=== PATIENT | female | born 1945 | race Caucasian/White ===

== ENCOUNTER 2016-09-01 10:00 | Observation (INO) | payer MEDICARE, OTHER ==
[~2016-09-01] VITALS: Ht 154.9 cm; Wt 72.0 kg
[~2016-09-01 10:00] MED LIST: AUGM875T PO; AZIT250T43 PO; LEXA20TA PO; SYNT25TA PO; TRAZ100 PO
[2016-09-01 10:04] VITALS: BP 133/70; PULSE 78; RESP 20; TEMP 97.4; O2SAT 94
[2016-09-01] MEDS ORDERED: SODIUM CHLOR 0.9% 1000 ML INJ 1,000 ML IV SCH (11:08)
[2016-09-01] MEDS ORDERED: SODIUM CHLORIDE 0.9% FLUSH 10 ML FLUSH IV FLUSH PRN ×2 (11:15→16:45)
--- NOTE | 2016-09-01 11:26 | PD ---
HPI Chief Complaint: Complaint Time Seen by Provider: 11:02 Travel History International Travel<30 days: No Contact w/Intl Traveler<30days: No Traveled to known affect area: No History of Present Illness HPI Patient is a 71-year-old female with her "significant other" who presents to emergency room with multiple complaints. Patient reports that for the past week , she has had a strong foul-smelling urine, reports concerns for possible UTI. Patient denies dysuria or urinary urgency. Patient reports that she has had overall decreased fluid intake, reports that "I know that I don't drink enough water." Patient reports no fevers or chills, denies any nausea or vomiting. Patient also reporting that she has been having diarrhea, patient admits to maybe 1 or 2 episodes of diarrhea per day 1 week. Patient reports that she has not been on any antibiotics, denies any sick contacts, denies any recent travels, reports no abdominal pain at this time. Patient with no chest pain or no shortness of breath, patient with no other complaints. PFSH Past Medical History Arthritis: Yes Asthma: No Anxiety: Yes Depression: Yes Heart Rhythm Problems: No Cancer: Yes (RIGHT BREAST) Cardiac Catheterization: No Cardiovascular Problems: No High Cholesterol: No (DENIES) Chest Pain: No Congestive Heart Failure: No COPD: Yes Cerebrovascular Accident: No Diabetes: No Diminished Hearing: No Endocrine: Yes GERD: No Genitourinary: No Headaches: Yes Hiatal Hernia: No Immune Disorder: No Musculoskeletal: Yes Neurologic: No Psychiatric: Yes Reproductive: No Respiratory: No (quit smoking 5 years ago) Migraines: No Pneumonia: Yes Seizures: No Sleep Apnea: No Thyroid Disease: Yes (PER POA, PATIENT USED TO BE TREATED FOR THYROOID PROBLEM) Ulcer: No ?: Not Menopausal: Yes : 1 Para: 1 Past Surgical History Abdominal Surgery: No Appendectomy: Yes (?) Body Medical Devices: LEFT KNEE REP. Cardiac Surgery: No Cholecystectomy: Yes (?) Coronary Artery Bypass Graft: No Ear Surgery: No Endocrine Surgery: No Genitourinary Surgery: No Hysterectomy: Yes Neurologic Surgery: Yes (SUBDURAL HEMATOMA, BACK SURGERY February [place]) Oral Surgery: Yes (TEETH REMOVED FOR DENTURES) Thoracic Surgery: No Other Surgery: Yes (SPINAL STENOSIS; RIGHT MASTECTOMY) Social History Alcohol Use: Yes (RARE) Tobacco Use: No Substance Use: Yes (TWO PPUFFS OF A BLUNT TWO DAYS AGO) Allergies-Medications (Allergen,Severity, Reaction): Coded Allergies: Wellbutrin (Verified Allergy, Severe, 02/27/16) *MDRO Multi-Drug Resistant Organism (Verified Adverse Reaction, Unknown, 03/01/16) [facility] (urine) - 04/02/11 Reported Meds & Prescriptions Reported Meds & Active Scripts Active Reported Tramadol (Tramadol HCl) 50 Mg Tab 50 Mg PO BID PRN Donepezil 10 Mg Tab 10 Mg PO HS Escitalopram (Escitalopram Oxalate) 10 Mg Tab 10 Mg PO DAILY Celecoxib 200 Mg Cap 200 Mg PO DAILY Levothyroxine (Levothyroxine Sodium) 25 Mcg Tab 25 Mcg PO DAILY Review of Systems General / Constitutional: No: Fever Eyes: No: Visual changes HENT: No: Headaches Cardiovascular: No: Chest Pain or Discomfort Respiratory: No: Shortness of Breath Gastrointestinal: Positive: Diarrhea, No: Nausea, Vomiting, Abdominal Pain Genitourinary: Positive: Frequency, Other ("foul smelling urine"), No: Dysuria Musculoskeletal: No: Pain Skin: No Rash Neurologic: No: Weakness Psychiatric: No: Depression Endocrine: No: Polydipsia Hematologic/Lymphatic: No: Easy Bruising Physical Exam Narrative GENERAL: No acute distress, nontoxic SKIN: Focused skin assessment warm/dry. HEAD: Atraumatic. Normocephalic. EYES: Pupils equal and round. No scleral icterus. No injection or drainage. ENT: No nasal bleeding or discharge. Mucous membranes pink and moist. NECK: Trachea midline. No JVD. CARDIOVASCULAR: Regular rate and rhythm. No murmur appreciated. RESPIRATORY: No accessory muscle use. Scattered wheezing to lungs GASTROINTESTINAL: Abdomen soft, non-tender, nondistended. Hepatic and splenic margins not palpable. MUSCULOSKELETAL: No obvious deformities. No clubbing. No cyanosis. No edema. NEUROLOGICAL: Awake and alert. No obvious cranial nerve deficits. Motor grossly within normal limits. Normal speech. PSYCHIATRIC: Appropriate mood and affect; insight and judgment normal. Data Data Last Documented VS Vital Signs Date Time Temp Pulse Resp B/P Pulse Ox O2 Delivery O2 Flow Rate FiO2 09/01/16 10:04 97.4 78 20 133/70 94 Room Air Orders Complete Blood Count With Diff (09/01/16 11:08) Comprehensive Metabolic Panel (09/01/16 11:08) Urinalysis - C+S If Indicated (09/01/16 11:08) Iv Access Insert/Monitor (09/01/16 11:08) Sodium Chlor 0.9% 1000 Ml Inj (Ns 1000 M (09/01/16 11:08) Sodium Chloride 0.9% Flush (Ns Flush) (09/01/16 11:15) Urinary Catheter Insert/Apply (09/01/16 11:52) Urine Culture (09/01/16 12:00) Ceftriaxone Inj (Rocephin Inj) (09/01/16 13:15) Admit Order (Ed Use Only) (09/01/16 13:58) Labs Laboratory Tests Test 09/01/16 09/01/16 09/01/16 11:40 12:00 12:35 White Blood Count 7.2 TH/MM3 Red Blood Count 5.00 MIL/MM3 Hemoglobin 15.1 GM/DL Hematocrit 45.2 % Mean Corpuscular Volume 90.4 FL Mean Corpuscular Hemoglobin 30.3 PG Mean Corpuscular Hemoglobin 33.5 % Concent Red Cell Distribution Width 15.1 % Platelet Count 226 TH/MM3 Mean Platelet Volume 9.1 FL Neutrophils (%) (Auto) 67.6 % Lymphocytes (%) (Auto) 22.9 % Monocytes (%) (Auto) 7.3 % Eosinophils (%) (Auto) 1.7 % Basophils (%) (Auto) 0.5 % Neutrophils # (Auto) 4.9 TH/MM3 Lymphocytes # (Auto) 1.7 TH/MM3 Monocytes # (Auto) 0.5 TH/MM3 Eosinophils # (Auto) 0.1 TH/MM3 Basophils # (Auto) 0.0 TH/MM3 CBC Comment DIFF FINAL Differential Comment Urine Color YELLOW Urine Turbidity CLOUDY Urine pH 5.5 Urine Specific [place] 1.023 Urine Protein 30 mg/dL Urine Glucose (UA) NEG mg/dL Urine Ketones TRACE mg/dL Urine Occult Blood MOD Urine Nitrite NEG Urine Bilirubin NEGATIVE Urine Leukocyte Esterase SMALL Urine RBC 15 /hpf Urine WBC /hpf Urine Squamous Epithelial 89 /hpf Cells Urine Amorphous Sediment SMALL Urine Bacteria MANY /hpf Microscopic Urinalysis Comment CATH-CULTURE IND Sodium Level 146 MEQ/L Potassium Level 4.0 MEQ/L Chloride Level 111 MEQ/L Carbon Dioxide Level 30.3 MEQ/L Anion Gap 5 MEQ/L Blood Urea Nitrogen 16 MG/DL Creatinine 0.69 MG/DL Estimat Glomerular Filtration 84 ML/MIN Rate Random Glucose 99 MG/DL Calcium Level 8.1 MG/DL Total Bilirubin 0.3 MG/DL Aspartate Amino Transf 16 U/L (AST/SGOT) Alanine Aminotransferase 21 U/L (ALT/SGPT) Alkaline Phosphatase 62 U/L Total Protein 6.5 GM/DL Albumin 3.1 GM/DL MDM Medical Decision Making Medical Screen Exam Complete: Yes Emergency Medical Condition: Yes Interpretation(s) Vital Signs Date Time Temp Pulse Resp B/P Pulse Ox O2 Delivery O2 Flow Rate FiO2 09/01/16 10:04 97.4 78 20 133/70 94 Room Air Differential Diagnosis UTI, cystitis, pyelonephritis, gastroenteritis, C. difficile although unlikely, dehydration Narrative Course Patient is a 71-year-old female who presents to emergency room with complaints of a week of dark foul-smelling urine as well as diarrhea. Patient reports that symptoms have been sick for the past week, she has not been on antibiotics , denies any sick contacts. Patient reports that his significant other for forced her to come to the emergency room for evaluation. Reports that overall, "i feel fine, there is nothing wrong with me." Patient with benign exam, labs ordered to evaluate for infection and renal insufficiency. UA ordered to evaluate for UTI. Diarrhea could be related to viral syndrome - reports only a few episodes of diarrhea per day, patient with no abdominal pain at this time, patient has not been on antibiotics recently, I do not think the patient has C. difficile colitis, plan to monitor patient and give IVF Laboratory Tests Test 09/01/16 09/01/16 09/01/16 11:40 12:00 12:35 White Blood Count 7.2 TH/MM3 (4.0-11.0) Red Blood Count 5.00 MIL/MM3 (4.00-5.30) Hemoglobin 15.1 GM/DL (11.6-15.3) Hematocrit 45.2 % (35.0-46.0) Mean Corpuscular Volume 90.4 FL (80.0-100.0) Mean Corpuscular Hemoglobin 30.3 PG (27.0-34.0) Mean Corpuscular Hemoglobin 33.5 % Concent (32.0-36.0) Red Cell Distribution Width 15.1 % (11.6-17.2) Platelet Count 226 TH/MM3 (150-450) Mean Platelet Volume 9.1 FL (7.0-11.0) Neutrophils (%) (Auto) 67.6 % (16.0-70.0) Lymphocytes (%) (Auto) 22.9 % (9.0-44.0) Monocytes (%) (Auto) 7.3 % (0.0-8.0) Eosinophils (%) (Auto) 1.7 % (0.0-4.0) Basophils (%) (Auto) 0.5 % (0.0-2.0) Neutrophils # (Auto) 4.9 TH/MM3 (1.8-7.7) Lymphocytes # (Auto) 1.7 TH/MM3 (1.0-4.8) Monocytes # (Auto) 0.5 TH/MM3 (0-0.9) Eosinophils # (Auto) 0.1 TH/MM3 (0-0.4) Basophils # (Auto) 0.0 TH/MM3 (0-0.2) CBC Comment DIFF FINAL Differential Comment Urine Color YELLOW (YELLW/STRAW) Urine Turbidity CLOUDY (CLEAR) Urine pH 5.5 (5.0-8.5) Urine Specific [place] 1.023 (1.002-1.035) Urine Protein 30 mg/dL (NEG-TRACE) Urine Glucose (UA) NEG mg/dL (NEG) Urine Ketones TRACE mg/dL (NEG) Urine Occult Blood MOD (NEG) Urine Nitrite NEG (NEG) Urine Bilirubin NEGATIVE (NEG) Urine Leukocyte Esterase SMALL (NEG) Urine RBC 15 /hpf (0-3) Urine WBC /hpf (0-5) Urine Squamous Epithelial 89 /hpf (0-5) Cells Urine Amorphous Sediment SMALL Urine Bacteria MANY /hpf (NONE) Microscopic Urinalysis Comment CATH-CULTURE IND Sodium Level 146 MEQ/L (136-145) Potassium Level 4.0 MEQ/L (3.5-5.1) Chloride Level 111 MEQ/L (98-107) Carbon Dioxide Level 30.3 MEQ/L (21.0-32.0) Anion Gap 5 MEQ/L (5-15) Blood Urea Nitrogen 16 MG/DL (7-18) Creatinine 0.69 MG/DL (0.50-1.00) Estimat Glomerular Filtration 84 ML/MIN (>89) Rate Random Glucose 99 MG/DL (74-106) Calcium Level 8.1 MG/DL (8.5-10.1) Total Bilirubin 0.3 MG/DL (0.2-1.0) Aspartate Amino Transf 16 U/L (15-37) (AST/SGOT) Alanine Aminotransferase 21 U/L (10-53) (ALT/SGPT) Alkaline Phosphatase 62 U/L (45-117) Total Protein 6.5 GM/DL (6.4-8.2) Albumin 3.1 GM/DL (3.4-5.0) patient with uti, patient spouse reports that patient has hx of dementia but there is concerned for increased confusion over the past week, reports concern for her safety if she is discharged from home, request that patient be placed in NH as she is bed bound and wheelchair bound and he is unable to care for her anymore. I tried to encourage pt's "significant other" to take patient home with a script for antibiotics and plan to follow with UC - he feels unsafe taking patient home and feels as if he cannot care for her anymore. Physician Communication Physician Communication case reviewed with Dr. Maldonado who accepts pt to service Diagnosis Primary Impression: Delirium due to another medical condition Additional Impression: UTI (urinary tract infection) Admitting Information Admitting Physician Requests: Observation Cyndi Coleman DO Sep 01, 2016 11:26
[2016-09-01 12:08] LABS: AUTOMATED NEUTROPHIL # 4.9 TH/MM3 (1.8-7.7); BASOPHIL % 0.5 % (0.0-2.0); EOSINOPHIL # 0.1 TH/MM3 (0-0.4); EOSINOPHIL % 1.7 % (0.0-4.0); HEMATOCRIT 45.2 % (35.0-46.0); HEMO FLAGS DIFF FINAL; LYMPH % 22.9 % (9.0-44.0); LYMPHOCYTE # 1.7 TH/MM3 (1.0-4.8); MEAN CELL VOLUME 90.4 FL (80.0-100.0); MEAN CORPUSCULAR HEMOGLOBIN 30.3 PG (27.0-34.0); MEAN CORPUSCULAR HGB CONC 33.5 % (32.0-36.0); MONO % 7.3 % (0.0-8.0); NEUT % 67.6 % (16.0-70.0); PLATELET COUNT 226 TH/MM3 (150-450); RED CELL DISTRIBUTION WIDTH 15.1 % (11.6-17.2); WHITE BLOOD COUNT 7.2 TH/MM3 (4.0-11.0)
[2016-09-01] MEDS ORDERED: ESCI10TA PO (12:27)
[2016-09-01] MEDS ORDERED: CELE1CAP8 PO (12:27)
[2016-09-01] MEDS ORDERED: DONE10TA7 PO (12:27)
[2016-09-01] MEDS ORDERED: TRAM50TA PO (12:27)
[2016-09-01] MEDS ORDERED: LEVO25TA4 PO (12:27)
[2016-09-01 13:00] VITALS: BP 143/64; PULSE 72; RESP 18; O2SAT 95
[2016-09-01 13:08] LABS: BACTERIA, URINE MANY /hpf; SQUAMOUS EPITHELIAL CELL URINE 89 /hpf (0-5); URINE COLOR YELLOW (YELLW/STRAW)
[2016-09-01 13:09] LABS: BLOOD, URINE MOD (NEG); GLUCOSE,URINE NEG (NEG); KETONE, URINE TRACE mg/dL (NEG); NITRITE,URINE NEG (NEG); PH, URINE 5.5 (5.0-8.5)
[2016-09-01 13:10] LABS: COMMENT (UR) CATH-CULTURE IND; CULTURE IF INDICATED CATH CULTURE IND
[2016-09-01] MEDS ORDERED: cefTRIAXone INJ 1,000 MG in SODIUM CHLORIDE 0.9% INJ 100 ML IV ONE (13:15)
[2016-09-01 13:32] LABS: ALT (GPT) 21 U/L (10-53); ANION GAP 5 MEQ/L (5-15); AST (GOT) 16 U/L (15-37); BICARBONATE 30.3 MEQ/L (21.0-32.0); BLOOD UREA NITROGEN 16 MG/DL (7-18); CHLORIDE 111 MEQ/L (98-107); GLOMERULAR FILTRATION RATE 84 ML/MIN (>89); SODIUM (NA) 146 MEQ/L (136-145)
[2016-09-01 13:34] LABS: ALKALINE PHOSPHATASE 62 U/L (45-117); TOTAL BILIRUBIN ADULT 0.3 MG/DL (0.2-1.0)
[2016-09-01 15:05] VITALS: BP 150/64; PULSE 87; RESP 18; O2SAT 95
[2016-09-01] MEDS ORDERED: ONDANSETRON HCL 4 MG/2 ML VIAL IVP PRN (16:45)
[2016-09-01] MEDS ORDERED: NALOXONE HCL 0.4 MG/ML AMP IV PRN (16:45)
[2016-09-01] MEDS ORDERED: ACETAMINOPHEN 325 MG TAB PO PRN (16:45)
[2016-09-01 16:46] VITALS: BP 142/72; PULSE 80; RESP 17; O2SAT 95
[2016-09-01] MEDS: CIPROFLOXACIN 500 MG TAB PO SCH (19:24)
[2016-09-01] MEDS: SODIUM CHLORIDE 0.9% FLUSH 10 ML FLUSH IV FLUSH SCH (19:24)
[2016-09-02] VITALS: BP 123/58; PULSE 71; RESP 20; TEMP 96.5; O2SAT 95
[2016-09-02 04:00] VITALS: BP 121/55; PULSE 74; RESP 18; TEMP 97.2; O2SAT 96
[2016-09-02] MEDS: LEVOTHYROXINE SODIUM 25 MCG TAB PO SCH (07:53)
[2016-09-02 08:11] VITALS: BP 135/60; PULSE 74; RESP 18; TEMP 97.7; O2SAT 96
[2016-09-02] MEDS: CIPROFLOXACIN 500 MG TAB PO SCH ×2 (08:59→22:39)
[2016-09-02] MEDS: ESCITALOPRAM OXALATE 10 MG TAB PO SCH (08:59)
[2016-09-02] MEDS: SODIUM CHLORIDE 0.9% FLUSH 10 ML FLUSH IV FLUSH SCH ×2 (09:00→21:00)
--- NOTE | 2016-09-02 09:09 | HHI.HP ---
[facility] Franco Mcdonough MD Admission Diagnosis Acute Delirum, uti Diagnoses: Chief Complaint: Confusion Travel History International Travel<30 Days: No Contact w/Intl Traveler <30 Da: No Traveled to Known Affected Are: No History of Present Illness 71-year-old female with past medical history of anxiety/depression, breast cancer, hypothyroidism, and dementia who presented with confusion. Reportedly the patient was brought in by her "male friend" who she has lived with for quite some time. Reportedly the patient has been more confused than normal. Reportedly she has a history of dementia. Currently the patient states that she lives in [facility], the month is September, she does not know the year. She states that she's been in the hospital for several days and several weeks when asked what brought her in. She states that she is feeling well at this time and has no acute complaints. She denies any dysuria, urinary frequency, fever, chills, nausea, vomiting, diarrhea, chest pain, shortness of breath. She does state that she is able to walk a little when she is in her wheelchair, and unable to stand without assistance. She states that her leg weakness is chronic and has been going on for quite some time, per SO has not walked for 3 years. RN reports urine has been green overnight with significant sediment. Review of Systems Except as stated in HPI: all other systems reviewed are Neg Past Family Social History Past Medical History Anxiety/depression Hypothyroidism Dementia History of breast cancer status post treatment and mastectomy Document history of COPD, patient denies Past Surgical History Appendectomy Cholecystectomy Hysterectomy Subdural hematoma evacuation Right breast mastectomy Back surgery Reported Medications Tramadol (Tramadol HCl) 50 Mg Tab 50 Mg PO BID PRN Donepezil 10 Mg Tab 10 Mg PO HS Escitalopram (Escitalopram Oxalate) 10 Mg Tab 10 Mg PO DAILY Celecoxib 200 Mg Cap 200 Mg PO DAILY Levothyroxine (Levothyroxine Sodium) 25 Mcg Tab 25 Mcg PO DAILY Allergies: Coded Allergies: Wellbutrin (Verified Allergy, Severe, 02/27/16) *MDRO Multi-Drug Resistant Organism (Verified Adverse Reaction, Unknown, 03/01/16) [facility] (urine) - 04/02/11 Active Ordered Medications Current Medications Medications (Trade) Dose Ordered Sig/Hannah Route Start Time Stop Time Status Last Admin (NS Flush) 2 ml UNSCH PRN IV FLUSH 09/01/16 16:45 (NS Flush) 2 ml BID IV FLUSH 09/01/16 21:00 09/01/16 19:24 (Tylenol) 650 mg Q4H PRN PO 09/01/16 16:45 (Zofran Inj) 4 mg Q6H PRN IVP 09/01/16 16:45 (Narcan Inj) 0.4 mg UNSCH PRN IV 09/01/16 16:45 (Cipro) 500 mg Q12HR PO 09/01/16 21:00 09/01/16 19:24 (Aricept) 10 mg HS PO 09/02/16 21:00 (Lexapro) 10 mg DAILY PO 09/02/16 09:00 (Synthroid) 25 mcg DAILY@06 PO 09/02/16 07:15 09/02/16 07:53 Family History The patient denies any family history of Parkinson's or Alzheimer's Social History Lives at home with her significant other Smokes half a pack to a pack daily Rarely drinks alcohol Denies any drug use Physical Exam Vital Signs Vital Signs Date Time Temp Pulse Resp B/P Pulse Ox O2 Delivery O2 Flow Rate FiO2 09/02/16 08:11 97.7 74 18 135/60 96 09/02/16 04:00 97.2 74 18 121/55 96 09/02/16 00:00 96.5 71 20 123/58 95 09/01/16 16:46 80 17 142/72 95 Room Air 09/01/16 15:05 87 18 150/64 95 Room Air 09/01/16 13:00 72 18 143/64 95 Room Air 09/01/16 10:04 97.4 78 20 133/70 94 Room Air Physical Exam GENERAL: Well-developed well-nourished. In no acute distress. SKIN: Warm and dry. No lesions noted. HEENT: Normocephalic. Pupils equal and round. Mucous membranes pink and moist. CARDIOVASCULAR: Regular rate and rhythm. No murmur appreciated. RESPIRATORY: No accessory muscle use. Clear to auscultation. Breath sounds equal bilaterally. GASTROINTESTINAL: Abdomen soft, mild suprapubic TTP, nondistended. Bowel sounds x4. MUSCULOSKELETAL: No obvious deformities. No clubbing or cyanosis. No edema. NEUROLOGICAL: Awake and alert. Upper extremity strength 4/5. Unable to lift legs against gravity. Normal speech. PSYCHIATRIC: Appropriate mood and affect; insight and judgment poor. Laboratory Laboratory Tests Test 09/01/16 09/01/16 09/01/16 11:40 12:00 12:35 White Blood Count 7.2 Red Blood Count 5.00 Hemoglobin 15.1 Hematocrit 45.2 Mean Corpuscular Volume 90.4 Mean Corpuscular Hemoglobin 30.3 Mean Corpuscular Hemoglobin 33.5 Concent Red Cell Distribution Width 15.1 Platelet Count 226 Mean Platelet Volume 9.1 Neutrophils (%) (Auto) 67.6 Lymphocytes (%) (Auto) 22.9 Monocytes (%) (Auto) 7.3 Eosinophils (%) (Auto) 1.7 Basophils (%) (Auto) 0.5 Neutrophils # (Auto) 4.9 Lymphocytes # (Auto) 1.7 Monocytes # (Auto) 0.5 Eosinophils # (Auto) 0.1 Basophils # (Auto) 0.0 CBC Comment DIFF FINAL Differential Comment Urine Color YELLOW Urine Turbidity CLOUDY Urine pH 5.5 Urine Specific [place] 1.023 Urine Protein 30 Urine Glucose (UA) NEG Urine Ketones TRACE Urine Occult Blood MOD Urine Nitrite NEG Urine Bilirubin NEGATIVE Urine Leukocyte Esterase SMALL Urine RBC 15 Urine WBC Urine Squamous Epithelial 89 Cells Urine Amorphous Sediment SMALL Urine Bacteria MANY Microscopic Urinalysis Comment CATH-CULTURE IND Sodium Level 146 Potassium Level 4.0 Chloride Level 111 Carbon Dioxide Level 30.3 Anion Gap 5 Blood Urea Nitrogen 16 Creatinine 0.69 Estimat Glomerular Filtration 84 Rate Random Glucose 99 Calcium Level 8.1 Total Bilirubin 0.3 Aspartate Amino Transf 16 (AST/SGOT) Alanine Aminotransferase 21 (ALT/SGPT) Alkaline Phosphatase 62 Total Protein 6.5 Albumin 3.1 Date/Time Procedure Status Source Growth 09/01/16 12:00 Urine Culture Received Urine Catheterized Urine Pending Result Diagram: 09/01/16 1140 09/01/16 1235 Assessment and Plan Problem List: (1) UTI (lower urinary tract infection) ICD Code: N39.0 Status: Acute (2) Encephalopathy ICD Code: G93.40 Status: Acute Assessment and Plan 71-year-old female with past medical history of anxiety/depression, breast cancer, hypothyroidism, and dementia who presented with confusion Acute encephalopathy on chronic dementia: Suspect worsening confusion secondary to acute UTI. Continue antibiotics and follow up urine culture. Check B12 and TSH; RPR previously within normal limits. PT/OT/ST. Case management consult. Continue home Aricept. Hold home sedating medications for now. UTI: UA with evidence of UTI. Afebrile with no leukocytosis. Received IV Rocephin in the ED. Continue oral Cipro. Follow-up urine culture. Hypothyroidism: Check TSH. Continue home levothyroxine. Impression: Chronic, stable. Continue home Lexapro. DVT prophylaxis: SCDs Discussed Condition With Patient with RN at bedside, Dr. Maldonado, case management Al Castillo Sep 02, 2016 09:09
[2016-09-02] MEDS ORDERED: ARTIFICIAL TEARS OPTH SOLN 15 ML BTL EACH EYE PRN (09:15)
[2016-09-02] MEDS ORDERED: traMADol HCL 50 MG TAB PO PRN (11:15)
[2016-09-02 11:23] VITALS: BP 137/97; PULSE 78; RESP 18; TEMP 97.7; O2SAT 98
[2016-09-02 12:48] LABS: BICARBONATE 23.6 MEQ/L (21.0-32.0)
[2016-09-02 15:41] VITALS: BP 123/57; PULSE 85; TEMP 98; O2SAT 95
[2016-09-02 20:49] VITALS: BP 132/60; PULSE 90; RESP 19; TEMP 98; O2SAT 95
[2016-09-02] MEDS ORDERED: DONEPEZIL HCL 5 MG TAB PO SCH (21:00)
[2016-09-03 00:13] VITALS: BP 130/62; PULSE 89; RESP 19; TEMP 98; O2SAT 95
[2016-09-03 03:48] VITALS: BP 166/97; PULSE 90; RESP 20; TEMP 98.2; O2SAT 94
[2016-09-03] MEDS: LEVOTHYROXINE SODIUM 25 MCG TAB PO SCH (05:34)
[2016-09-03 08:00] VITALS: BP 178/72; PULSE 90; RESP 20; TEMP 99.2; O2SAT 93
[2016-09-03] MEDS: ESCITALOPRAM OXALATE 10 MG TAB PO SCH (08:18)
[2016-09-03] MEDS: CIPROFLOXACIN 500 MG TAB PO SCH (08:18)
[2016-09-03] MEDS: SODIUM CHLORIDE 0.9% FLUSH 10 ML FLUSH IV FLUSH SCH (09:00)
--- NOTE | 2016-09-03 09:16 | HHI.PR ---
Subjective Remarks Follow-up for possible UTI and confusion. Patient seen with significant other/ POA at bedside. See any other says the patient is at mental status baseline today. Patient remains disoriented to place and time. She states the president is Luis Hernandez. Unable to recall 3 objects at 1 minute. The patient denies any urinary symptoms. She has no acute complaints today. Discussed at length concerning discharge planning with patient and significant other who cares for her at home, and feels that he can do so. They were hoping to have the patient placed in long-term care, however the facilities they want her currently full and they would like to go home and follow-up with the patient's PCP, Dr. Thomas. I offered them C nursing, PT, transition social worker, and they said they've done this before, didn't see much benefit, and declined HHC at this time. They declined discussing with hospice nurse at this time, but are willing to take literature on hospice. Objective Vitals Vital Signs Date Time Temp Pulse Resp B/P Pulse Ox O2 Delivery O2 Flow Rate FiO2 09/03/16 03:48 98.2 90 20 166/97 94 09/03/16 00:13 98.0 89 19 130/62 95 09/02/16 20:49 98.0 90 19 132/60 95 09/02/16 15:41 98.0 85 123/57 95 09/02/16 11:23 97.7 78 18 137/97 98 I/O 09/02/16 09/02/16 09/02/16 09/03/16 09/03/16 09/03/16 07:00 15:00 23:00 07:00 15:00 23:00 Output Total 500 ml 1000 ml 500 ml Balance -500 ml -1000 ml -500 ml Output Urine Total 500 ml 1000 ml 500 ml # Bowel Movements 1 1 Result Diagram: 09/01/16 1140 09/02/16 1145 Objective Remarks GENERAL: Well-developed well-nourished. In no acute distress. Oriented to self. SKIN: Warm and dry. No lesions noted. HEENT: Normocephalic. Pupils equal and round. Mucous membranes pink and moist. CARDIOVASCULAR: Regular rate and rhythm. No murmur appreciated. RESPIRATORY: No accessory muscle use. Clear to auscultation. Breath sounds equal bilaterally. GASTROINTESTINAL: Abdomen soft, non-tender, nondistended. Bowel sounds x4. MUSCULOSKELETAL: No obvious deformities. No clubbing or cyanosis. No edema. NEUROLOGICAL: Awake and alert. Weakness of the upper and lower extremities. Normal speech. PSYCHIATRIC: Appropriate mood and affect; insight and judgment limited. A/P Problem List: (1) UTI (lower urinary tract infection) ICD Code: N39.0 Status: Acute (2) Encephalopathy ICD Code: G93.40 Status: Resolved Assessment and Plan 71-year-old female with past medical history of anxiety/depression, breast cancer, hypothyroidism, and dementia who presented with confusion Acute encephalopathy on chronic dementia: Possible worsening confusion secondary to acute UTI. Continue antibiotics and follow up urine culture. B12 and TSH within normal limits; RPR previously within normal limits. Patient is reportedly at her mental status baseline, no significant change since being admitted. Cognitive eval with 08/08 on [facility], previously 06/14; indicative of severe cognitive deficits, however this appears chronic. Appreciate rehabilitation services input. Case management consulted. Patient and SO declining SNF, long-term care, [facility] at this time. Continue home Aricept. UTI: UA with evidence of UTI versus a contaminant with 89 squamous epithelial cells. Afebrile with no leukocytosis. Not really any urinary complaints. Treated for UTI with possible worsening confusion as above. Continue oral Cipro. Follow-up with PCP for final urine culture. Hypothyroidism: TSH within normal limits. Continue home levothyroxine. Impression: Chronic, stable. Continue home Lexapro. DVT prophylaxis: SCDs Written by Al Castillo, acting as scribe for Dr. Maldonado on 09/03/16 at 09:58. Discharge Planning Discharge patient to home Condition on discharge: Improved Regular Diet as tolerated Regular activity Rx written: Cipro Follow-up with primary care physician 1630 informed that patient was discharged with Elizabeth catheter in place. Home health care nurse to remove Elizabeth tomorrow. Recommended charge nurse file an incident report. Al Castillo Sep 03, 2016 09:16
[2016-09-03] MEDS ORDERED: CIPR-9 PO (09:59)
--- NOTE | 2016-09-03 13:00 | HHI.FF ---
Face to Face Verification Diagnosis: (1) UTI (urinary tract infection) (2) Delirium due to another medical condition (3) Dementia Physical Therapy Order: Evaluate and Treat, Improve ambulation, Strength and gait training Home Health Nursing Order: Medical education Signs/symptoms of disease process Medication education-adverse effect Nursing assessment with vital signs Elizabeth catheter maintenance Instructions: Remove Elizabeth catheter Customs Compliance Director Order: To Evaluate: Living conditions/environment, Support services Order: To Provide: Long range planning, Community services I have seen patient Tess Taylor on 09/03/16. My clinical findings support the need for the requested home health care services because: Ltd mobility - disease progression Deconditioned w/ increased weakness Limited ability to care for self Need for psychosocial assistance Impaired cognition/judgement High risk of falls I certify that my clinical findings support that this patient is homebound because: Impaired cognitive ability/safety Unsteady gait/balance Need for psychosocial assistance [id number] bed/chair Al Castillo Sep 03, 2016 13:00
== END 2016-09-03 15:45 | disposition home or self-care (01) ==
LOC: NEPC 10:00 → NEDA 14:01 → NEPFCDU 17:54
PROVIDERS: ADMIT Family Medicine; ATTEND Family Medicine
DX: N39.0 Urinary tract infection, site not specified (principal); G93.40 Encephalopathy, unspecified; R19.7 Diarrhea, unspecified; M19.90 Unspecified osteoarthritis, unspecified site; J44.9 Chronic obstructive pulmonary disease, unspecified; R51 Headache; F05 Delirium due to known physiological condition; Z85.3 Personal history of malignant neoplasm of breast; F03.90 Unspecified dementia, unspecified severity, without behavioral disturbance, psychotic disturbance, mood disturbance, and anxiety; E03.9 Hypothyroidism, unspecified; F32.9 Major depressive disorder, single episode, unspecified; F41.9 Anxiety disorder, unspecified; F17.210 Nicotine dependence, cigarettes, uncomplicated; R41.89 Other symptoms and signs involving cognitive functions and awareness; B95.4 Other streptococcus as the cause of diseases classified elsewhere
CPT/HCPCS: 51702; 80048; 80053; 81001; 82607; 84443; 85025; 87086; 96125; 96361; 96365; 97163; 97166; 97532; 99284; G0378; G8987; G8988; J0696; J7030

== ENCOUNTER 2017-10-22 17:38 | Inpatient (IN) | payer MEDICARE, MEDICAID ==
[~2017-10-22] VITALS: Ht 154.9 cm; Wt 75.2 kg
[2017-10-22] VITALS (7 sets, daily range): BP systolic 97–173; BP diastolic 50–80; PULSE 76–136; RESP 16–25; TEMP 97.5–100.8; O2SAT 95–99
[~2017-10-22 17:38] MED LIST changes: -AUGM875T PO; -AZIT250T43 PO; +CELE1CAP8 PO; +CIPR-9 PO; +DONE10TA7 PO; +ESCI10TA PO; +LEVO25TA4 PO; -LEXA20TA PO; -SYNT25TA PO; +TRAM50TA PO; -TRAZ100 PO
--- NOTE | 2017-10-22 18:29 | PD ---
HPI Chief Complaint: Abdominal Pain Time Seen by Provider: 18:16 Travel History International Travel<30 days: No Contact w/Intl Traveler<30days: No Traveled to known affect area: No History of Present Illness HPI Patient is a 72-year-old female presenting to the emergency department for evaluation of abdominal pain. Patient lives at home with her son who stated to EMS that she had a small pimple-like bowel movement yesterday, no normal bowel movements in several days. Patient is a poor historian. H&P is limited due to no family members at bedside and patient's mental status. PFSH Past Medical History Arthritis: Yes Anxiety: Yes Depression: Yes Cancer: Yes (RIGHT BREAST) COPD: Yes Headaches: Yes Musculoskeletal: Yes Neurologic: Yes (DEMENTIA) Reproductive: No Migraines: No Pneumonia: Yes Seizures: No Sleep Apnea: No Thyroid Disease: Yes (PER POA, PATIENT USED TO BE TREATED FOR THYROID PROBLEM) Ulcer: No Menopausal: Yes : 1 Para: 1 Past Surgical History Abdominal Surgery: No Appendectomy: Yes Body Medical Devices: LEFT KNEE REP. Cardiac Surgery: No Cholecystectomy: Yes Coronary Artery Bypass Graft: No Ear Surgery: No Endocrine Surgery: No Genitourinary Surgery: No Hysterectomy: Yes Neurologic Surgery: Yes (SUBDURAL HEMATOMA) Oral Surgery: Yes (TEETH REMOVED FOR DENTURES) Thoracic Surgery: No Other Surgery: Yes (SPINAL STENOSIS; RIGHT MASTECTOMY) Social History Alcohol Use: Yes (RARE) Tobacco Use: No Substance Use: Yes (A COUPLE PUFFS OF MARIJUANA OCCASIONALLY) Allergies-Medications (Allergen,Severity, Reaction): Coded Allergies: bupropion (Unverified Allergy, Severe, 12/29/16) *MDRO Multi-Drug Resistant Organism (Verified Adverse Reaction, Unknown, 03/01/16) [facility] (urine) - 04/02/11 Reported Meds & Prescriptions Reported Meds & Active Scripts Active Reported Cymbalta DR (Duloxetine HCl) 20 Mg Capdr 20 Mg PO BID Levothyroxine (Levothyroxine Sodium) 50 Mcg Tab 50 Mcg PO DAILY Tramadol (Tramadol HCl) 50 Mg Tab 50 Mg PO BID PRN Donepezil 10 Mg Tab 10 Mg PO HS Celecoxib 200 Mg Cap 200 Mg PO DAILY Review of Systems ROS Limitations: Poor Historian Except as stated in HPI: all other systems reviewed are Neg General / Constitutional: Positive: Fever Cardiovascular: Positive: Irregular Rhythm, Tachycardia Gastrointestinal: Positive: Abdominal Pain, Constipation Physical Exam Narrative GENERAL: Overweight, well-developed, alert elderly female. Presenting in no acute distress. SKIN: Warm and dry. HEAD: Atraumatic. Normocephalic. EYES: Pupils equal and round. No scleral icterus. No injection or drainage. ENT: No nasal bleeding or discharge. Mucous membranes pink and moist. NECK: Trachea midline. No JVD. CARDIOVASCULAR: Irregularly irregular, tachycardic RESPIRATORY: No accessory muscle use. Diminished breath sounds in bases. GASTROINTESTINAL: Abdomen soft, tender to palpation diffusely, nondistended. Hepatic and splenic margins not palpable. Positive guarding, no rebound. MUSCULOSKELETAL: Extremities without clubbing, cyanosis, or edema. No obvious deformities. NEUROLOGICAL: Awake and alert. No obvious cranial nerve deficits. Motor grossly within normal limits. Five out of 5 muscle strength in the arms and legs. Incoherent speech. PSYCHIATRIC: Appropriate mood and affect; insight and judgment impaired. Data Data Last Documented VS Vital Signs Date Time Temp Pulse Resp B/P (MAP) Pulse Ox O2 Delivery O2 Flow Rate FiO2 10/22/17 18:34 100.8 136 20 173/80 (111) 95 Room Air Orders Orders Sepsis Workup Initiated (10/22/17 ) Complete Blood Count With Diff (10/22/17 18:10) Comprehensive Metabolic Panel (10/22/17 18:10) Lactic Acid Sepsis Protocol (10/22/17 18:10) Blood Culture (10/22/17 18:10) Iv Access Insert/Monitor (10/22/17 18:10) Oxygen Administration (10/22/17 18:10) Oximetry (10/22/17 18:10) Blood Glucose (10/22/17 18:10) Troponin I (10/22/17 18:10) B-Type Natriuretic Peptide (10/22/17 18:10) Electrocardiogram (10/22/17 ) Acetaminophen 1000 Mg/100 Ml (Ofirmev 10 (10/22/17 18:30) Urinalysis - C+S If Indicated (10/22/17 18:22) Insert Temp Sensing Elizabeth Cath (10/22/17 18:22) Sodium Chlorid 0.9% 500 Ml Inj (Ns 500 M (10/22/17 18:30) Metoprolol Tartrate Inj (Lopressor Inj) (10/22/17 19:00) Ct Abd/Pel W/O Iv Contrast (10/22/17 ) Sodium Chlor 0.9% 1000 Ml Inj (Ns 1000 M (10/22/17 19:45) Vancomycin Inj (Vancomycin Inj) (10/22/17 19:47) Piperacil-Tazo 4.5 Gm Premix (Zosyn 4.5 (10/22/17 19:59) Urine Culture (10/22/17 19:38) Admit Order (Ed Use Only) (10/22/17 20:40) Labs Laboratory Tests Test 10/22/17 18:15 10/22/17 19:38 White Blood Count 21.4 TH/MM3 Red Blood Count 4.98 MIL/MM3 Hemoglobin 15.6 GM/DL Hematocrit 45.9 % Mean Corpuscular Volume 92.2 FL Mean Corpuscular Hemoglobin 31.3 PG Mean Corpuscular Hemoglobin Concent 33.9 % Red Cell Distribution Width 13.5 % Platelet Count 250 TH/MM3 Mean Platelet Volume 10.2 FL Neutrophils (%) (Auto) 92.8 % Lymphocytes (%) (Auto) 3.6 % Monocytes (%) (Auto) 3.4 % Eosinophils (%) (Auto) 0.0 % Basophils (%) (Auto) 0.2 % Neutrophils # (Auto) 19.9 TH/MM3 Lymphocytes # (Auto) 0.8 TH/MM3 Monocytes # (Auto) 0.7 TH/MM3 Eosinophils # (Auto) 0.0 TH/MM3 Basophils # (Auto) 0.0 TH/MM3 CBC Comment DIFF FINAL Differential Comment Blood Urea Nitrogen 24 MG/DL Creatinine 2.06 MG/DL Random Glucose 199 MG/DL Total Protein 7.9 GM/DL Albumin 2.8 GM/DL Calcium Level 8.7 MG/DL Alkaline Phosphatase 94 U/L Aspartate Amino Transf (AST/SGOT) 59 U/L Alanine Aminotransferase (ALT/SGPT) 24 U/L Total Bilirubin 1.1 MG/DL Sodium Level 137 MEQ/L Potassium Level 4.6 MEQ/L Chloride Level 102 MEQ/L Carbon Dioxide Level 21.1 MEQ/L Anion Gap 14 MEQ/L Estimat Glomerular Filtration Rate 24 ML/MIN Lactic Acid Level 2.9 mmol/L Troponin I 0.04 NG/ML Urine Color RED Urine Turbidity CLOUDY Urine pH 7.5 Urine Specific [place] 1.021 Urine Protein 300 mg/dL Urine Glucose (UA) NEG mg/dL Urine Ketones NEG mg/dL Urine Occult Blood MOD Urine Nitrite NEG Urine Bilirubin NEG Urine Urobilinogen 2.0 MG/DL Urine Leukocyte Esterase LARGE Urine RBC 86 /hpf Urine WBC /hpf Urine WBC Clumps MANY Urine Squamous Epithelial Cells 35 /hpf Urine Bacteria MANY /hpf Urine Mucus FEW /lpf Microscopic Urinalysis Comment CATH-CULTURE IND MDM Medical Decision Making Medical Screen Exam Complete: Yes Emergency Medical Condition: Yes Medical Record Reviewed: Yes Interpretation(s) Last Impressions Abdomen/Pelvis CT 10/22/17 0000 Signed Impressions: CONCLUSION: 1. Moderate right hydronephrosis with at least 3 separate calculi in the proxi mal right ureter as above. 2. Mild left hydronephrosis with a possible faintly calcified stone in the pro ximal left ureter measuring just under 1 cm. Left ureter remains dilated to the level of the bladder. Elizaebth catheter in bladder. 3. No other acute findings on abdomen and pelvic CT. Laboratory Tests Test 10/22/17 18:15 10/22/17 19:38 White Blood Count 21.4 TH/MM3 Red Blood Count 4.98 MIL/MM3 Hemoglobin 15.6 GM/DL Hematocrit 45.9 % Mean Corpuscular Volume 92.2 FL Mean Corpuscular Hemoglobin 31.3 PG Mean Corpuscular Hemoglobin Concent 33.9 % Red Cell Distribution Width 13.5 % Platelet Count 250 TH/MM3 Mean Platelet Volume 10.2 FL Neutrophils (%) (Auto) 92.8 % Lymphocytes (%) (Auto) 3.6 % Monocytes (%) (Auto) 3.4 % Eosinophils (%) (Auto) 0.0 % Basophils (%) (Auto) 0.2 % Neutrophils # (Auto) 19.9 TH/MM3 Lymphocytes # (Auto) 0.8 TH/MM3 Monocytes # (Auto) 0.7 TH/MM3 Eosinophils # (Auto) 0.0 TH/MM3 Basophils # (Auto) 0.0 TH/MM3 CBC Comment DIFF FINAL Differential Comment Blood Urea Nitrogen 24 MG/DL Creatinine 2.06 MG/DL Random Glucose 199 MG/DL Total Protein 7.9 GM/DL Albumin 2.8 GM/DL Calcium Level 8.7 MG/DL Alkaline Phosphatase 94 U/L Aspartate Amino Transf (AST/SGOT) 59 U/L Alanine Aminotransferase (ALT/SGPT) 24 U/L Total Bilirubin 1.1 MG/DL Sodium Level 137 MEQ/L Potassium Level 4.6 MEQ/L Chloride Level 102 MEQ/L Carbon Dioxide Level 21.1 MEQ/L Anion Gap 14 MEQ/L Estimat Glomerular Filtration Rate 24 ML/MIN Lactic Acid Level 2.9 mmol/L Troponin I 0.04 NG/ML Urine Color RED Urine Turbidity CLOUDY Urine pH 7.5 Urine Specific [place] 1.021 Urine Protein 300 mg/dL Urine Glucose (UA) NEG mg/dL Urine Ketones NEG mg/dL Urine Occult Blood MOD Urine Nitrite NEG Urine Bilirubin NEG Urine Urobilinogen 2.0 MG/DL Urine Leukocyte Esterase LARGE Urine RBC 86 /hpf Urine WBC /hpf Urine WBC Clumps MANY Urine Squamous Epithelial Cells 35 /hpf Urine Bacteria MANY /hpf Urine Mucus FEW /lpf Microscopic Urinalysis Comment CATH-CULTURE IND Vital Signs Date Time Temp Pulse Resp B/P (MAP) Pulse Ox O2 Delivery O2 Flow Rate FiO2 10/22/17 18:34 100.8 136 20 173/80 (111) 95 Room Air 10/22/17 18:19 98 Room Air 10/22/17 18:19 98 Room Air 10/22/17 17:50 132 25 173/80 (111) 96 Differential Diagnosis Metabolic abnormality versus sepsis versus UTI versus obstruction versus diverticulitis versus A. fib with RVR versus other Narrative Course Patient is a 72-year-old female presenting to the emergency department, on arrival she was noted to be tachycardic, initial EKG shows atrial fibrillation with rapid ventricular response, heart rate was 131. Additionally patient's vital signs which are not charted showed a temp of 101.6. Labs and imaging ordered and pending. IV access was established, patient be given acetaminophen 1000 mg IV 1 dose, patient be given 500 cc bolus of normal saline. Heart rate is currently 113. Patient was given Lopressor 2.5 mg IV. CBC with white count of 21.4, lactic acid 2.9, elevated BUN and creatinine at 24 /2.06, urinalysis is consistent with a urinary tract infection. Patient was given vancomycin and Zosyn. She was given an additional liter of IV fluids. Patient's heart rate is now in the low 80s. Discussed findings and plan of care with my attending physician. Patient was admitted to Dr. Mckeon admit orders placed. Sepsis Criteria SIRS Criteria (2 or more): Temp > 100.9 or < 96.8, Heart rate over 90, WBC > 23170, < 4000 or > 10% bands Sepsis Criteria (SIRS+source): Infect source susp/known Severe Sepsis (+one): Organ Dysfunction, Lactate >2 Diagnosis Primary Impression: Severe sepsis Additional Impressions: UTI (urinary tract infection) Qualified Codes: N39.0 - Urinary tract infection, site not specified; R31.9 - Hematuria, unspecified Atrial fibrillation with RVR SARAH (acute kidney injury) Kidney stones Admitting Information Admitting Physician Requests: Admit Condition: Stable Mirella Batista WOMEN'S STUDIES PROFESSOR Oct 22, 2017 18:29
[2017-10-22] MEDS ORDERED: SODIUM CHLORID 0.9% 500 ML INJ 500 ML IV ONE (18:30)
[2017-10-22] MEDS ORDERED: ACETAMINOPHEN 1000 MG/100 ML 100 ML IV ONE (18:30)
[2017-10-22 18:39] LABS: AUTOMATED NEUTROPHIL # 19.9 TH/MM3 (1.8-7.7); BASOPHIL % 0.2 % (0.0-2.0); HEMATOCRIT 45.9 % (35.0-46.0); HEMOGLOBIN 15.6 GM/DL (11.6-15.3); LYMPH % 3.6 % (9.0-44.0); LYMPHOCYTE # 0.8 TH/MM3 (1.0-4.8); MEAN CELL VOLUME 92.2 FL (80.0-100.0); MEAN CORPUSCULAR HEMOGLOBIN 31.3 PG (27.0-34.0); MEAN CORPUSCULAR HGB CONC 33.9 % (32.0-36.0); MEAN PLATELET VOLUME 10.2 FL (7.0-11.0); MONO % 3.4 % (0.0-8.0); MONOCYTE # 0.7 TH/MM3 (0-0.9); NEUT % 92.8 % (16.0-70.0); PLATELET COUNT 250 TH/MM3 (150-450); RED BLOOD COUNT 4.98 MIL/MM3 (4.00-5.30); RED CELL DISTRIBUTION WIDTH 13.5 % (11.6-17.2); WHITE BLOOD COUNT 21.4 TH/MM3 (4.0-11.0)
[2017-10-22] MEDS ORDERED: METOPROLOL TARTRATE 5 MG/5 ML VIAL IV PUSH ONE (19:00)
[2017-10-22] MEDS ORDERED: DULO20 PO (19:03)
[2017-10-22] MEDS ORDERED: LEVO50TA4 PO (19:03)
[2017-10-22 19:14] LABS: LACTIC ACID SEPSIS PROTOCOL 2.9 mmol/L (0.4-2.0)
[2017-10-22 19:17] LABS: ALKALINE PHOSPHATASE 94 U/L (45-117); ALT (GPT) 24 U/L (10-53); TOTAL BILIRUBIN ADULT 1.1 MG/DL (0.2-1.0); TOTAL PROTEIN 7.9 GM/DL (6.4-8.2); TROPONIN I 0.04 NG/ML (0.02-0.05)
[2017-10-22 19:26] LABS: ALBUMIN 2.8 GM/DL (3.4-5.0); AST (GOT) 59 U/L (15-37); BICARBONATE 21.1 MEQ/L (21.0-32.0); BLOOD UREA NITROGEN 24 MG/DL (7-18); CALCIUM 8.7 MG/DL (8.5-10.1); CHLORIDE 102 MEQ/L (98-107); CREATININE 2.06 MG/DL (0.50-1.00); GLOMERULAR FILTRATION RATE 24 ML/MIN (>89); GLUCOSE,RANDOM 199 MG/DL (74-106); SODIUM (NA) 137 MEQ/L (136-145)
[2017-10-22] MEDS ORDERED: SODIUM CHLOR 0.9% 1000 ML INJ 1,000 ML IV ONE (19:45)
[2017-10-22] MEDS ORDERED: VANCOMYCIN INJ 1,000 MG in SODIUM CHLOR 0.9% 250 ML INJ 250 ML IV STA (19:47)
[2017-10-22] MEDS ORDERED: PIPERACIL-TAZO 4.5 GM PREMIX 100 ML IV STA (19:59)
[2017-10-22 20:13] LABS: BACTERIA, URINE MANY /hpf; BILIRUBIN, URINE NEG (NEG); BLOOD, URINE MOD (NEG); GLUCOSE,URINE NEG (NEG); KETONE, URINE NEG (NEG); MUCUS URINE FEW /lpf (OCC); NITRITE,URINE NEG (NEG); PH, URINE 7.5 (5.0-8.5); SQUAMOUS EPITHELIAL CELL URINE 35 /hpf (0-5); URINE LEUKOCYTE ESTERASE LARGE (NEG); WHITE BLOOD CELL CLUMPS MANY
--- NOTE | 2017-10-22 20:13 | RADRPT ---
EXAM DATE: 10/22/2017 8:03 PM EDT AGE/SEX: 72 years / Female INDICATIONS: Lower abdomen pain for two days. CLINICAL DATA: This is the patient's initial encounter. Patient reports that signs and symptoms have been present for 2 days and indicates a pain score of 7/10. MEDICAL/SURGICAL HISTORY: Carcinoma, breast. Hysterectomy. Appendectomy. Cholecystectomy. RADIATION DOSE: 14.81 CTDI (mGy) COMPARISON: No prior exams available for comparison. TECHNIQUE: Multiple contiguous axial images were obtained through the abdomen. Images were obtained using multiple row detector helical technique. Using dose reduction techniques, radiation dose was ke pt as low as reasonably achievable to obtain optimal diagnostic quality images. FINDINGS: There is linear atelectasis or scarring at the lung bases. No pleural or pericardial effusion. No acute findings in the liver, spleen, adrenals or pancreas. No calcified gallstones. There are at least 3 separate calculi in the proximal right ureter with the largest measuring about 1 0 mm x 5 mm in the other 2 calculi measuring up to about 5 mm and 7 mm in length and around 3 mm in d iameter. There is moderate right-sided hydronephrosis and additional tiny nonobstructing calculi suellen uring about 1 1 mm in diameter. On the left side there are numerous nonobstructing calculi ranging in size from 1 to 5 mm. There is a faintly calcified suspected stone in the proximal left ureter with mild left hydronephrosis. Left ur eter remains dilated to the level of the bladder. There is a Elizabeth catheter in the bladder. No pelvic masses or free fluid. No adenopathy. No bowel obstruction. Moderate scoliosis. CONCLUSION: 1. Moderate right hydronephrosis with at least 3 separate calculi in the proximal right ureter as ab ove. 2. Mild left hydronephrosis with a possible faintly calcified stone in the proximal left ureter suellen uring just under 1 cm. Left ureter remains dilated to the level of the bladder. Elizabeth catheter in chela dder. 3. No other acute findings on abdomen and pelvic CT. Electronically signed by: Nimesh Miles MD 10/22/2017 8:12 PM EDT
[2017-10-22 20:14] LABS: URINE COLOR RED (YELLW/STRAW)
--- NOTE | 2017-10-22 20:50 | HHI.HP ---
[facility] Franco Mcdonough MD Admission Diagnosis UTI, sepsis, A. fib with RVR, kidney stones Diagnoses: (1) Sepsis Diagnosis: Principal (2) UTI (lower urinary tract infection) Diagnosis: Principal (3) Hydronephrosis Diagnosis: Principal (4) SARAH (acute kidney injury) Diagnosis: Principal (5) A-fib Diagnosis: Principal (6) Dementia Diagnosis: Principal Travel History International Travel<30 Days: No Contact w/Intl Traveler <30 Da: No Traveled to Known Affected Are: No History of Present Illness This is a 72-year-old female with a PMH of Anxiety, Depression, Breast CA, COPD and Dementia who was brought to the ER by EMS for c/o abdominal pain. Pt is very poor historian due to Dementia, able to answer few questions, but tells me pain is improved. Per report, pt lives w/ Son, who called EMS due to pt's complaints of abdominal pain. No apparent fever, nausea or vomiting. On arrival, BP 133/80, HR 132, O2 sat 96% on RA, Temp 100.8. Noted to be in A. fib with RVR. S/p IVF and Lopressor IV w/ improvement, HR now 80's. WBC 21.4. Creatinine 2.06, previously 0.79 on 09/02/2016. Lactic Acid 2.9. UA positive for significant UTI. CT Abdomen/Pelvis moderate right hydronephrosis with 3 separate calculi in proximal right ureter, mild left hydronephrosis with faintly calcified stone in proximal left ureter measuring under 1 cm. S/p Blood Cultures, Vanc/Zosyn in ER. Review of Systems Except as stated in HPI: all other systems reviewed are Neg ROS: 14 point review of systems otherwise negative. Past Family Social History Past Medical History PMH: Anxiety, Depression, Breast CA, COPD and Dementia Past Surgical History PAST SURGICAL HISTORY: Left Knee Replacement, Cholecystectomy, Hysterectomy, Subdural Hematoma, Dental Extraction, Right Mastectomy Allergies: Coded Allergies: bupropion (Unverified Allergy, Severe, 8/16/17) *MDRO Multi-Drug Resistant Organism (Verified Adverse Reaction, Unknown, 03/01/16) [facility] (urine) - 04/02/11 Family History PAST FAMILY HISTORY: Reviewed. No h/o DM or CAD Social History PAST SOCIAL HISTORY: Occasional alcohol. Negative for tobacco. Occasional Marijuana. Physical Exam Vital Signs Vital Signs Date Time Temp Pulse Resp B/P (MAP) Pulse Ox O2 Delivery O2 Flow Rate FiO2 10/22/17 20:45 98.8 81 16 131/56 (81) 96 Room Air 10/22/17 18:34 100.8 136 20 173/80 (111) 95 Room Air 10/22/17 18:19 98 Room Air 10/22/17 18:19 98 Room Air 10/22/17 17:50 132 25 173/80 (111) 96 Physical Exam PE: GENERAL: Elderly white female in no acute distress, appears much older than stated age. HEENT: PERRLA, EOMI. No scleral icterus or conjunctival pallor. No lid lag or facial droop. CARDIOVASCULAR: Regular rate and rhythm. No obvious murmurs to auscultation. No chest tenderness to palpation. RESPIRATORY: No obvious rhonchi or wheezing. Clear to auscultation. Breath sounds equal bilaterally. GASTROINTESTINAL: Abdomen soft, non-tender, nondistended. BS normal. MUSCULOSKELETAL: Extremities without clubbing, cyanosis, or edema. No obvious deformities. NEUROLOGICAL: Awake, alert, dementia at baseline, poor historian but answering few questions, incoherent speech at times. No focal neurologic deficits. Moving both upper and lower extremities spontaneously. Laboratory Laboratory Tests Test 10/22/17 18:15 10/22/17 19:38 White Blood Count 21.4 Red Blood Count 4.98 Hemoglobin 15.6 Hematocrit 45.9 Mean Corpuscular Volume 92.2 Mean Corpuscular Hemoglobin 31.3 Mean Corpuscular Hemoglobin Concent 33.9 Red Cell Distribution Width 13.5 Platelet Count 250 Mean Platelet Volume 10.2 Neutrophils (%) (Auto) 92.8 Lymphocytes (%) (Auto) 3.6 Monocytes (%) (Auto) 3.4 Eosinophils (%) (Auto) 0.0 Basophils (%) (Auto) 0.2 Neutrophils # (Auto) 19.9 Lymphocytes # (Auto) 0.8 Monocytes # (Auto) 0.7 Eosinophils # (Auto) 0.0 Basophils # (Auto) 0.0 CBC Comment DIFF FINAL Differential Comment Blood Urea Nitrogen 24 Creatinine 2.06 Random Glucose 199 Total Protein 7.9 Albumin 2.8 Calcium Level 8.7 Alkaline Phosphatase 94 Aspartate Amino Transf (AST/SGOT) 59 Alanine Aminotransferase (ALT/SGPT) 24 Total Bilirubin 1.1 Sodium Level 137 Potassium Level 4.6 Chloride Level 102 Carbon Dioxide Level 21.1 Anion Gap 14 Estimat Glomerular Filtration Rate 24 Lactic Acid Level 2.9 Troponin I 0.04 B-Type Natriuretic Peptide 264 Urine Color RED Urine Turbidity CLOUDY Urine pH 7.5 Urine Specific [place] 1.021 Urine Protein 300 Urine Glucose (UA) NEG Urine Ketones NEG Urine Occult Blood MOD Urine Nitrite NEG Urine Bilirubin NEG Urine Urobilinogen 2.0 Urine Leukocyte Esterase LARGE Urine RBC 86 Urine WBC Urine WBC Clumps MANY Urine Squamous Epithelial Cells 35 Urine Bacteria MANY Urine Mucus FEW Microscopic Urinalysis Comment CATH-CULTURE IND Date/Time Source Procedure Growth Status 10/22/17 18:20 Blood Peripheral Aerobic Blood Culture Pending Received 10/22/17 18:20 Blood Peripheral Anaerobic Blood Culture Pending Received 10/22/17 19:38 Urine Catheterized Urine Urine Culture Pending Received Result Diagram: 10/22/17 18110/22/17 181 Caprini VTE Risk Assessment Caprini VTE Risk Assessment: No/Low Risk (score <= 1) Caprini Risk Assessment Model Point Value = 1 Point Value = 2 Point Value = 3 Point Value = 5 Age 41-60 Minor surgery BMI > 25 kg/m2 Swollen legs Varicose veins or History of unexplained or recurrent spontaneous Oral contraceptives or hormone replacement Sepsis (< 1 month) Serious lung disease, including pneumonia (< 1 month) Abnormal pulmonary function Acute myocardial infarction Congestive heart failure (< 1 month) History of inflammatory bowel disease Medical patient at bed rest Age 61-74 Arthroscopic surgery Major open surgery (> 45 min) Laparoscopic surgery (> 45 min) Malignancy Confined to bed (> 72 hours) Immobilizing plaster cast Central venous access Age >= 75 History of VTE Family history of VTE Factor V Leiden Prothrombin [id number] Lupus anticoagulant Anticardiolipin antibodies Elevated serum homocysteine Heparin-induced thrombocytopenia Other congenital or acquired thrombophilia Stroke (< 1 month) Elective arthroplasty Hip, pelvis, or leg fracture Acute spinal cord injury (< 1 month) Prophylaxis Regimen Total Risk Factor Score Risk Level Prophylaxis Regimen 0-1 Low Early ambulation 2 Moderate Order ONE of the following: *Sequential Compression Device (SCD) *Heparin 5000 units SQ BID 3-4 Higher Order ONE of the following medications: *Heparin 5000 units SQ TID *Enoxaparin/Lovenox 40 mg SQ daily (WT < 150 kg, CrCl > 30 mL/min) *Enoxaparin/Lovenox 30 mg SQ daily (WT < 150 kg, CrCl > 10-29 mL/min) *Enoxaparin/Lovenox 30 mg SQ BID (WT < 150 kg, CrCl > 30 mL/min) AND/OR *Sequential Compression Device (SCD) 5 or more Highest Order ONE of the following medications: *Heparin 5000 units SQ TID (Preferred with Epidurals) *Enoxaparin/Lovenox 40 mg SQ daily (WT < 150 kg, CrCl > 30 mL/min) *Enoxaparin/Lovenox 30 mg SQ daily (WT < 150 kg, CrCl > 10-29 mL/min) *Enoxaparin/Lovenox 30 mg SQ BID (WT < 150 kg, CrCl > 30 mL/min) AND *Sequential Compression Device (SCD) Assessment and Plan Problem List: (1) Sepsis ICD Code: A41.9 - Sepsis, unspecified organism Status: Acute (2) UTI (lower urinary tract infection) ICD Code: N39.0 - Lower urinary tract infectious disease Status: Acute (3) Hydronephrosis ICD Code: N13.30 - Unspecified hydronephrosis (4) SARAH (acute kidney injury) ICD Code: N17.9 - Acute kidney failure, unspecified Status: Acute (5) A-fib ICD Code: I48.91 - Unspecified atrial fibrillation (6) Dementia ICD Code: F03.90 - Unspecified dementia without behavioral disturbance Status: Acute Assessment and Plan A/P: 1. Sepsis: Temp 100.8, HR 130's, WBC 21, Lactic Acid 2.9, Source-UTI. S/p Blood/Urine cultures, Vanc/Zosyn in ER, follow up cultures, continue IV Abx, IVF , repeat Lactic Acid 2. UTI: U/a w/ significant UTI, continue w/ IV Abx, follow up urine cultures, IVF for hydration, monitor I/O. 3. Hydronephrosis: CT Abd/Pelvis w/ moderate right hydronephrosis and mild left hydronephrosis due to stone, images reviewed by me, Consult Urology for further evaluation/intervention. Flomax, analgesics/antiemetics as needed. 4. SARAH: Creatinine 2.06, previously 0.79 on 09/02/16, secondary to UTI/ Hydronephrosis, IVF for hydration, repeat labs in am. 5. A-fib: w/ RVR, s/p IVF and Lopressor in ER w/ resolution, HR 80's, will continue to monitor, likely exacerbated by Sepsis. Telemetry. 6. Dementia: Seemingly at baseline, answers few questions appropriately, incoherent speech at times. Resume home Aricept 7. DVT Prophylaxis: SCD/Teds 8. Social work for d/c planning as needed 9. Case discussed w/ ER physician at length, labs/records/imaging reviewed by me. Physician Certification 2 Midnight Certification Type: Admission for Inpatient Services Order for Inpatient Services The services are ordered in accordance with Medicare regulations or non- Medicare payer requirements, as applicable. In the case of services not specified as inpatient-only, they are appropriately provided as inpatient services in accordance with the 2-midnight benchmark. Estimated LOS (days): 2 days is the estimated time the patient will need to remain in the hospital, assuming treatment plan goals are met and no additional complications. Post-Hospital Plan: Not yet determined Chelly Mckeon MD Oct 22, 2017 20:50
[2017-10-22] MEDS ORDERED: METOCLOPRAMIDE HCL 10 MG/2 ML VIAL IV PUSH PRN (21:00)
[2017-10-22] MEDS ORDERED: MAGNESIUM HYDROXIDE SUSP 30 ML CUP PO PRN (21:00)
[2017-10-22] MEDS ORDERED: ACETAMINOPHEN 325 MG TAB PO PRN (21:00)
[2017-10-22] MEDS ORDERED: ACETAMINOPHEN/HYDROcodone 325 MG/5 MG TAB PO PRN (21:00)
[2017-10-22] MEDS ORDERED: SODIUM CHLORIDE 0.9% FLUSH 10 ML FLUSH IV FLUSH PRN (21:00)
[2017-10-22] MEDS ORDERED: SENNOSIDES 8.6 MG TAB PO PRN (21:00)
[2017-10-22] MEDS ORDERED: MORPHINE SULFATE 4 MG/ML INJ IV PUSH PRN (21:00)
[2017-10-22] MEDS ORDERED: BISACODYL 10 MG SUPP RECTAL PRN (21:00)
[2017-10-22] MEDS ORDERED: LACTULOSE SYRUP 20 GM/30 ML CUP PO PRN (21:00)
[2017-10-22] MEDS: SODIUM CHLORIDE 0.9% FLUSH 10 ML FLUSH IV FLUSH SCH (21:00)
[2017-10-22] MEDS: SODIUM CHLOR 0.9% 1000 ML INJ 1,000 ML IV SCH (21:30)
[2017-10-22] MEDS: DONEPEZIL HCL 5 MG TAB PO SCH (23:31)
[2017-10-22] MEDS: DULoxetine HCl DR 20 MG CAP PO SCH (23:31)
[2017-10-22] MEDS: DOCUSATE SODIUM 50 MG/SENNA 8.6 MG TAB PO SCH (23:31)
[2017-10-22] MEDS: TAMSULOSIN HCL 0.4 MG CAP PO SCH (23:31)
[2017-10-23] VITALS (8 sets, daily range): BP systolic 113–129; BP diastolic 56–75; PULSE 80–104; RESP 20–24; TEMP 97.4–98.3; O2SAT 95–98
[2017-10-23] MEDS: LEVOTHYROXINE SODIUM 50 MCG TAB PO SCH (06:16)
[2017-10-23] MEDS: SODIUM CHLOR 0.9% 1000 ML INJ 1,000 ML IV SCH ×2 (08:30→18:20)
[2017-10-23] MEDS: SODIUM CHLORIDE 0.9% FLUSH 10 ML FLUSH IV FLUSH SCH ×2 (09:00→20:37)
[2017-10-23] MEDS: DULoxetine HCl DR 20 MG CAP PO SCH ×2 (09:00→20:37)
[2017-10-23] MEDS: DOCUSATE SODIUM 50 MG/SENNA 8.6 MG TAB PO SCH ×2 (09:00→20:37)
[2017-10-23] MEDS: CEFEPIME INJ 1,000 MG in SODIUM CHLORIDE 0.9% INJ 100 ML IV SCH (09:55)
[2017-10-23 11:34] LABS: ALBUMIN 2.6 GM/DL (3.4-5.0); ALKALINE PHOSPHATASE 82 U/L (45-117); ALT (GPT) 21 U/L (10-53); AST (GOT) 21 U/L (15-37); BICARBONATE 19.1 MEQ/L (21.0-32.0); BLOOD UREA NITROGEN 27 MG/DL (7-18); CALCIUM 7.9 MG/DL (8.5-10.1); CHLORIDE 112 MEQ/L (98-107); CREATININE 1.63 MG/DL (0.50-1.00); GLOMERULAR FILTRATION RATE 31 ML/MIN (>89); GLUCOSE,RANDOM 160 MG/DL (74-106); SODIUM (NA) 142 MEQ/L (136-145); TOTAL BILIRUBIN ADULT 0.6 MG/DL (0.2-1.0); TOTAL PROTEIN 6.7 GM/DL (6.4-8.2)
[2017-10-23 13:10] LABS: AUTOMATED NEUTROPHIL # 13.2 TH/MM3 (1.8-7.7); BASOPHIL # 0.1 TH/MM3 (0-0.2); BASOPHIL % 0.5 % (0.0-2.0); EOSINOPHIL # 0.1 TH/MM3 (0-0.4); EOSINOPHIL % 0.4 % (0.0-4.0); HEMATOCRIT 35.6 % (35.0-46.0); HEMOGLOBIN 11.9 GM/DL (11.6-15.3); LYMPH % 5.6 % (9.0-44.0); LYMPHOCYTE # 0.8 TH/MM3 (1.0-4.8); MEAN CORPUSCULAR HEMOGLOBIN 30.9 PG (27.0-34.0); MEAN CORPUSCULAR HGB CONC 33.6 % (32.0-36.0); MEAN PLATELET VOLUME 9.5 FL (7.0-11.0); MONOCYTE # 0.8 TH/MM3 (0-0.9); NEUT % 88.5 % (16.0-70.0); PLATELET COUNT 185 TH/MM3 (150-450); RED BLOOD COUNT 3.87 MIL/MM3 (4.00-5.30); RED CELL DISTRIBUTION WIDTH 13.9 % (11.6-17.2); WHITE BLOOD COUNT 14.9 TH/MM3 (4.0-11.0)
--- NOTE | 2017-10-23 14:41 | EKG ---
Date Performed: 10/22/2017 Time Performed: 17:04:27 PTAGE: 72 years EKG: ATRIAL FIBRILLATION WITH RAPID VENTRICULAR RESPONSE NONSPECIFIC ST & T-WAVE ABNORMALITY ABN ORMAL RHYTHM ECG NO PREVIOUS TRACING DOCTOR: Rashel Mann Interpretating Date/Time 10/23/2017 14:38:40
--- NOTE | 2017-10-23 15:38 | HHI.PR ---
Subjective Remarks The patient states that she feels a little better compared to yesterday. The patient denies nausea, vomiting. The patient denies chest pain or shortness of breath. As per RN report, the patient had difficulty swallowing. Objective Vitals Vital Signs Date Time Temp Pulse Resp B/P (MAP) Pulse Ox O2 Delivery O2 Flow Rate FiO2 10/23/17 11:54 97.4 81 20 125/73 (90) 98 10/23/17 08:51 98.3 81 20 120/66 (84) 96 10/23/17 04:00 98.1 80 20 118/57 (77) 96 10/23/17 00:00 95 10/22/17 23:40 97.5 76 20 102/56 (71) 96 10/22/17 22:07 97.9 81 18 97/53 (68) 99 10/22/17 21:27 89 18 132/50 (77) 96 Room Air 10/22/17 21:27 10/22/17 20:45 98.8 81 16 131/56 (81) 96 Room Air 10/22/17 18:34 100.8 136 20 173/80 (111) 95 Room Air 10/22/17 18:19 98 Room Air 10/22/17 18:19 98 Room Air 10/22/17 17:50 132 25 173/80 (111) 96 I/O 10/22/17 10/22/17 10/22/17 10/23/17 10/23/17 10/23/17 07:00 15:00 23:00 07:00 15:00 23:00 Intake Total 1730 ml Output Total 200 ml Balance 1730 ml -200 ml Intake IV Total 1730 ml Output Urine Total 200 ml # Bowel Movements 0 Result Diagram: 10/23/17 1235 10/23/17 1055 Imaging Last Impressions Abdomen/Pelvis CT 10/22/17 0000 Signed Impressions: CONCLUSION: 1. Moderate right hydronephrosis with at least 3 separate calculi in the proxi mal right ureter as above. 2. Mild left hydronephrosis with a possible faintly calcified stone in the pro ximal left ureter measuring just under 1 cm. Left ureter remains dilated to the level of the bladder. Elizabeth catheter in bladder. 3. No other acute findings on abdomen and pelvic CT. Objective Remarks GENERAL: Elderly white female in no acute distress, appears much older than stated age. HEENT: PERRLA, EOMI. No scleral icterus or conjunctival pallor. No lid lag or facial droop. CARDIOVASCULAR: Regular rate and rhythm. No obvious murmurs to auscultation. No chest tenderness to palpation. RESPIRATORY: No obvious rhonchi or wheezing. Clear to auscultation. Breath sounds equal bilaterally. GASTROINTESTINAL: Abdomen soft, non-tender, nondistended. BS normal. MUSCULOSKELETAL: Extremities without clubbing, cyanosis, or edema. No obvious deformities. NEUROLOGICAL: Awake, alert, dementia at baseline, poor historian but answering few questions, incoherent speech at times. No focal neurologic deficits. Moving both upper and lower extremities spontaneously. A/P Problem List: (1) Sepsis ICD Code: A41.9 - Sepsis, unspecified organism Status: Acute (2) UTI (lower urinary tract infection) ICD Code: N39.0 - Lower urinary tract infectious disease Status: Acute (3) Hydronephrosis ICD Code: N13.30 - Unspecified hydronephrosis (4) SARAH (acute kidney injury) ICD Code: N17.9 - Acute kidney failure, unspecified Status: Acute (5) A-fib ICD Code: I48.91 - Unspecified atrial fibrillation (6) Dementia ICD Code: F03.90 - Unspecified dementia without behavioral disturbance Status: Acute Assessment and Plan 1. Sepsis: Temp 100.8, HR 130's, WBC 21, Lactic Acid 2.9, Source-UTI. S/p Blood/Urine cultures, Vanc/Zosyn in ER, follow up cultures, continue IV Abx, IVF , repeat Lactic Acid 10/23 continue IV cefepime, IV fluids. WBC trending down. Continue to monitor CBC. Lactic acid within normal range. 2. UTI: U/a w/ significant UTI, continue w/ IV Abx, follow up urine cultures, IVF for hydration, monitor I/O. 10/23 urine cultures growing gram-negative rods. 3. Hydronephrosis: CT Abd/Pelvis w/ moderate right hydronephrosis and mild left hydronephrosis due to stone, images reviewed by me, Consult Urology for further evaluation/intervention. Flomax, analgesics/antiemetics as needed. 10/23 urology consultation pending. 4. SARAH: Creatinine 2.06, previously 0.79 on 4/20/17, secondary to UTI/ Hydronephrosis, IVF for hydration, repeat labs in am. 10/23 likely multifactorial due to sepsis and dehydration and postobstructive. Continue IV fluids. Follow-up urology recommendations. Continue to monitor BMP , history I's and O's, avoid nephrotoxins. 5. A-fib: w/ RVR, s/p IVF and Lopressor in ER w/ resolution, HR 80's, will continue to monitor, likely exacerbated by Sepsis. Telemetry. 10/23 A. fib now rate controlled. Continue to monitor telemetry. 6. Dementia: Seemingly at baseline, answers few questions appropriately, incoherent speech at times. Resume home Aricept 7. DVT Prophylaxis: SCD/Teds 8. Social work for d/c planning as needed 9. labs/records/imaging reviewed by me. Discharge Planning Continue to monitor on the medical floor. Pending neurology consultation clinical improvement. Mata Ga MD Oct 23, 2017 15:38
--- NOTE | 2017-10-23 15:56 | PD.CONS ---
HPI Service Urology Consult Requested By Reason for Consult Nephrolithiasis, Ab pain Primary Care Physician Franco Mcdonough MD Diagnosis: (1) Sepsis ICD Code: A41.9 - Sepsis, unspecified organism (2) UTI (lower urinary tract infection) ICD Code: N39.0 - Lower urinary tract infectious disease (3) Hydronephrosis ICD Code: N13.30 - Unspecified hydronephrosis (4) SARAH (acute kidney injury) ICD Code: N17.9 - Acute kidney failure, unspecified (5) A-fib ICD Code: I48.91 - Unspecified atrial fibrillation (6) Dementia ICD Code: F03.90 - Unspecified dementia without behavioral disturbance History of Present Illness 72yo female with history of COPD, Dementia now admitted for Abdominal pain. Patient is poor historian, however per records it appears she was brought in by her son due to abdominal pain and low grade fevers. Since admit she has not had any pain or fevers. CT scan did identify bilateral nephrolithiasis with right proximal ureteral stones and mild to moderate right hydronephrosis with a malrotated right kidney, as well as some left renal stone and mild left hydronephrosis. She currently doing well, no pain, no discomfort. No fevers. She has not noticed any passage of stone or blood in her urine. Her WBC and CR have improved since admit. Review of Systems ROS Limitations: Clinical Condition Constitutional: DENIES: Fever Ears, nose, mouth, throat: DENIES: Hearing loss Respiratory: DENIES: Cough Cardiovascular: DENIES: Chest pain Gastrointestinal: DENIES: Abdominal pain, Nausea, Vomiting Genitourinary: DENIES: Hematuria, Dysuria Musculoskeletal: DENIES: Joint pain Integumentary: DENIES: Rash Neurologic: DENIES: Headache Psychiatric: COMPLAINS OF: Anxiety Except as stated in HPI: all other systems reviewed are Neg Past Family Social History Past Medical History Anxiety, Depression, Breast CA, COPD and Dementia Past Surgical History Left Knee Replacement, Cholecystectomy, Hysterectomy, Subdural Hematoma, Dental Extraction, Right Mastectomy Reported Medications Reported Meds & Active Scripts Active Reported Cymbalta DR (Duloxetine HCl) 20 Mg Capdr 20 Mg PO BID Levothyroxine (Levothyroxine Sodium) 50 Mcg Tab 50 Mcg PO DAILY Tramadol (Tramadol HCl) 50 Mg Tab 50 Mg PO BID PRN Donepezil 10 Mg Tab 10 Mg PO HS Celecoxib 200 Mg Cap 200 Mg PO DAILY Allergies: Coded Allergies: bupropion (Unverified Allergy, Severe, 12/29/16) *MDRO Multi-Drug Resistant Organism (Verified Adverse Reaction, Unknown, 03/01/16) [facility] (urine) - 04/02/11 Active Ordered Medications Current Medications Medications (Trade) Dose Ordered Sig/Hannah Route Start Time Stop Time Status Last Admin Cefepime HCl 1000 mg/Sodium Chloride 100 ml @ 200 mls/hr DAILY IV 10/23/17 09:00 10/23/17 09:55 Sodium Chloride 1,000 ml @ 100 mls/hr Q10H IV 10/22/17 20:46 10/23/17 08:30 (NS Flush) 2 ml UNSCH PRN IV FLUSH 10/22/17 21:00 (NS Flush) 2 ml BID IV FLUSH 10/22/17 21:00 (Reglan Inj) 5 mg Q6H PRN IV PUSH 10/22/17 21:00 (Tylenol) 650 mg Q6H PRN PO 10/22/17 21:00 10/23/17 06:10 ([place] 5-325 Mg) 1 tab Q4H PRN PO 10/22/17 21:00 (Morphine Inj) 2 mg Q3H PRN IV PUSH 10/22/17 21:00 (Re-Colace) 1 tab BID PO 10/22/17 21:00 10/22/17 23:31 (Milk Of Magnesia Liq) 30 ml Q12H PRN PO 10/22/17 21:00 (Senokot) 17.2 mg Q12H PRN PO 10/22/17 21:00 (Dulcolax Supp) 10 mg DAILY PRN RECTAL 10/22/17 21:00 (Lactulose Liq) 30 ml DAILY PRN PO 10/22/17 21:00 (Aricept) 10 mg HS PO 10/22/17 21:00 10/22/17 23:31 (Cymbalta Dr) 20 mg BID PO 10/22/17 21:00 10/22/17 23:31 (Synthroid) 50 mcg DAILY@0700 PO 10/23/17 07:00 10/23/17 06:16 (Flomax) 0.4 mg HS PO 10/22/17 21:00 10/22/17 23:31 Family History Family history Reviewed and noncontributory to present illness. No h/o DM or CAD Social History Occasional alcohol. Negative for tobacco. Occasional Marijuana. Physical Exam Vital Signs Date Time Temp Pulse Resp B/P (MAP) Pulse Ox O2 Delivery O2 Flow Rate FiO2 10/23/17 11:54 97.4 81 20 125/73 (90) 98 10/23/17 08:51 98.3 81 20 120/66 (84) 96 10/23/17 04:00 98.1 80 20 118/57 (77) 96 10/23/17 00:00 95 10/22/17 23:40 97.5 76 20 102/56 (71) 96 10/22/17 22:07 97.9 81 18 97/53 (68) 99 10/22/17 21:27 89 18 132/50 (77) 96 Room Air 10/22/17 21:27 10/22/17 20:45 98.8 81 16 131/56 (81) 96 Room Air 10/22/17 18:34 100.8 136 20 173/80 (111) 95 Room Air 10/22/17 18:19 98 Room Air 10/22/17 18:19 98 Room Air 10/22/17 17:50 132 25 173/80 (111) 96 Physical Exam GENERAL: This is a well-nourished, well-developed patient, in no apparent distress. SKIN: No rashes, ecchymoses or lesions. Cool and dry. HEAD: Atraumatic. Normocephalic. EYES: Extraocular motions intact. No scleral icterus. ENT: Nose without bleeding, purulent drainage. Airway patent. NECK: Trachea midline. No JVD or lymphadenopathy. CARDIOVASCULAR: Normal pulse RESPIRATORY: Nonlabored GASTROINTESTINAL: Abdomen soft, non-tender, nondistended MUSCULOSKELETAL: Extremities without clubbing, cyanosis, or edema. NEUROLOGICAL: Awake and alert. Somewhat appropriate response to questions. Motor and sensory grossly within normal limits. Normal speech. Lab results reviewed: Yes Laboratory Tests Test 10/22/17 18:15 10/22/17 19:38 10/22/17 20:47 10/23/17 10:55 White Blood Count 21.4 Red Blood Count 4.98 Hemoglobin 15.6 Hematocrit 45.9 Mean Corpuscular Volume 92.2 Mean Corpuscular Hemoglobin 31.3 Mean Corpuscular Hemoglobin Concent 33.9 Red Cell Distribution Width 13.5 Platelet Count 250 Mean Platelet Volume 10.2 Neutrophils (%) (Auto) 92.8 Lymphocytes (%) (Auto) 3.6 Monocytes (%) (Auto) 3.4 Eosinophils (%) (Auto) 0.0 Basophils (%) (Auto) 0.2 Neutrophils # (Auto) 19.9 Lymphocytes # (Auto) 0.8 Monocytes # (Auto) 0.7 Eosinophils # (Auto) 0.0 Basophils # (Auto) 0.0 CBC Comment DIFF FINAL Differential Comment Blood Urea Nitrogen 24 27 Creatinine 2.06 1.63 Random Glucose 199 160 Total Protein 7.9 6.7 Albumin 2.8 2.6 Calcium Level 8.7 7.9 Alkaline Phosphatase 94 82 Aspartate Amino Transf (AST/SGOT) 59 21 Alanine Aminotransferase (ALT/SGPT) 24 21 Total Bilirubin 1.1 0.6 Sodium Level 137 142 Potassium Level 4.6 3.2 Chloride Level 102 112 Carbon Dioxide Level 21.1 19.1 Anion Gap 14 11 Estimat Glomerular Filtration Rate 24 31 Lactic Acid Level 2.9 2.7 1.2 Troponin I 0.04 B-Type Natriuretic Peptide 264 Urine Color RED Urine Turbidity CLOUDY Urine pH 7.5 Urine Specific Robert Lee 1.021 Urine Protein 300 Urine Glucose (UA) NEG Urine Ketones NEG Urine Occult Blood MOD Urine Nitrite NEG Urine Bilirubin NEG Urine Urobilinogen 2.0 Urine Leukocyte Esterase LARGE Urine RBC 86 Urine WBC Urine WBC Clumps MANY Urine Squamous Epithelial Cells 35 Urine Bacteria MANY Urine Mucus FEW Microscopic Urinalysis Comment CATH-CULTURE IND Test 10/23/17 12:35 White Blood Count 14.9 Red Blood Count 3.87 Hemoglobin 11.9 Hematocrit 35.6 Mean Corpuscular Volume 92.0 Mean Corpuscular Hemoglobin 30.9 Mean Corpuscular Hemoglobin Concent 33.6 Red Cell Distribution Width 13.9 Platelet Count 185 Mean Platelet Volume 9.5 Neutrophils (%) (Auto) 88.5 Lymphocytes (%) (Auto) 5.6 Monocytes (%) (Auto) 5.0 Eosinophils (%) (Auto) 0.4 Basophils (%) (Auto) 0.5 Neutrophils # (Auto) 13.2 Lymphocytes # (Auto) 0.8 Monocytes # (Auto) 0.8 Eosinophils # (Auto) 0.1 Basophils # (Auto) 0.1 CBC Comment DIFF FINAL Differential Comment Date/Time Source Procedure Growth Status 10/22/17 18:20 Blood Peripheral Aerobic Blood Culture - Preliminary NO GROWTH IN 1 DAY Resulted 10/22/17 18:20 Blood Peripheral Anaerobic Blood Culture - Preliminary NO GROWTH IN 1 DAY Resulted 10/22/17 19:38 Urine Catheterized Urine Urine Culture - Preliminary Gram Negative Andrew Resulted Result Diagram: 10/23/17 1235 10/23/17 1055 Personally reviewed images: Yes Imaging Last Impressions Abdomen/Pelvis CT 10/22/17 0000 Signed Impressions: CONCLUSION: 1. Moderate right hydronephrosis with at least 3 separate calculi in the proxi mal right ureter as above. 2. Mild left hydronephrosis with a possible faintly calcified stone in the pro ximal left ureter measuring just under 1 cm. Left ureter remains dilated to the level of the bladder. Elizabeth catheter in bladder. 3. No other acute findings on abdomen and pelvic CT. Assessment and Plan Problem List: (1) UTI (urinary tract infection) ICD Code: N39.0 - Urinary tract infection, site not specified Status: Acute (2) SARAH (acute kidney injury) ICD Code: N17.9 - Acute kidney failure, unspecified Status: Acute (3) Hydronephrosis ICD Code: N13.30 - Unspecified hydronephrosis Assessment and Plan -CT scan personally reviewed with evidence of bilateral hydronephrosis. The right kidney is malrotated with some stones noted in the proximal right ureter. They do not appear to be obviously obstructing. Left kidney with several renal stones, however no obvious stone in the ureter. -At this time, the patient is without abdominal pain and reports feeling well. WBC and creatinine have both improved overnight. Therefore no immediate surgical intervention indicated at this time -Urine cultures have grown Gram negative rods -Continue broad spectrum antibiotics for UTI with adjustment based on culture results -Will follow. Problem Qualifiers (1) UTI (urinary tract infection): Qualified Codes: N39.0 - Urinary tract infection, site not specified; R31.9 - Hematuria, unspecified Mateo Gomes MD Oct 23, 2017 15:56
[2017-10-23] MEDS: DONEPEZIL HCL 5 MG TAB PO SCH (20:37)
[2017-10-23] MEDS: TAMSULOSIN HCL 0.4 MG CAP PO SCH (20:37)
[2017-10-24] VITALS (12 sets, daily range): BP systolic 105–145; BP diastolic 53–70; PULSE 72–127; RESP 16–22; TEMP 97.3–98.7; O2SAT 96–98
[2017-10-24] MEDS: LEVOTHYROXINE SODIUM 50 MCG TAB PO SCH (06:34)
[2017-10-24] MEDS: DULoxetine HCl DR 20 MG CAP PO SCH ×2 (09:10→21:19)
[2017-10-24] MEDS: DOCUSATE SODIUM 50 MG/SENNA 8.6 MG TAB PO SCH ×2 (09:11→21:20)
[2017-10-24] MEDS: SODIUM CHLORIDE 0.9% FLUSH 10 ML FLUSH IV FLUSH SCH ×2 (09:13→21:20)
[2017-10-24] MEDS: CEFEPIME INJ 1,000 MG in SODIUM CHLORIDE 0.9% INJ 100 ML IV SCH (10:15)
[2017-10-24] MEDS: SODIUM CHLOR 0.9% 1000 ML INJ 1,000 ML IV SCH ×2 (13:13→21:21)
[2017-10-24 14:13] LABS: AUTOMATED NEUTROPHIL # 10.8 TH/MM3 (1.8-7.7); BASOPHIL % 0.2 % (0.0-2.0); EOSINOPHIL # 0.1 TH/MM3 (0-0.4); HEMOGLOBIN 11.5 GM/DL (11.6-15.3); LYMPH % 8.9 % (9.0-44.0); LYMPHOCYTE # 1.1 TH/MM3 (1.0-4.8); MEAN CELL VOLUME 91.4 FL (80.0-100.0); MEAN CORPUSCULAR HGB CONC 33.9 % (32.0-36.0); MEAN PLATELET VOLUME 9.8 FL (7.0-11.0); MONO % 5.5 % (0.0-8.0); MONOCYTE # 0.7 TH/MM3 (0-0.9); NEUT % 84.4 % (16.0-70.0); PLATELET COUNT 217 TH/MM3 (150-450); RED BLOOD COUNT 3.73 MIL/MM3 (4.00-5.30); RED CELL DISTRIBUTION WIDTH 14.6 % (11.6-17.2); WHITE BLOOD COUNT 12.8 TH/MM3 (4.0-11.0)
[2017-10-24 14:29] LABS: ALBUMIN 2.4 GM/DL (3.4-5.0); ALT (GPT) 22 U/L (10-53); AST (GOT) 17 U/L (15-37); BICARBONATE 18.3 MEQ/L (21.0-32.0); BLOOD UREA NITROGEN 25 MG/DL (7-18); CALCIUM 8.4 MG/DL (8.5-10.1); CHLORIDE 113 MEQ/L (98-107); CREATININE 1.12 MG/DL (0.50-1.00); GLOMERULAR FILTRATION RATE 48 ML/MIN (>89); GLUCOSE,RANDOM 90 MG/DL (74-106); MAGNESIUM 2.1 MG/DL (1.5-2.5); PHOSPHORUS 2.6 MG/DL (2.5-4.9); SODIUM (NA) 143 MEQ/L (136-145)
[2017-10-24 14:32] LABS: ALKALINE PHOSPHATASE 88 U/L (45-117); TOTAL BILIRUBIN ADULT 0.3 MG/DL (0.2-1.0)
--- NOTE | 2017-10-24 14:59 | HHI.PR ---
Subjective Remarks The patient denies chest pain or shortness of breath. The patient states "I am here and I am alive". Denies fevers or chills. WBC trending down. Objective Vitals Vital Signs Date Time Temp Pulse Resp B/P (MAP) Pulse Ox O2 Delivery O2 Flow Rate FiO2 10/24/17 13:04 97.3 94 22 128/53 (78) 96 10/24/17 10:28 112 10/24/17 08:50 97.3 89 22 105/68 (80) 98 10/24/17 04:40 98.5 108 20 128/70 (89) 97 10/24/17 00:56 98.0 108 22 120/59 (79) 97 10/24/17 00:00 108 10/23/17 20:34 97.6 84 24 129/75 (93) 95 10/23/17 16:29 97.7 104 20 113/56 (75) 97 10/23/17 16:16 96 I/O 10/23/17 10/23/17 10/23/17 10/24/17 10/24/17 10/24/17 07:00 15:00 23:00 07:00 15:00 23:00 Intake Total 600 ml 463 ml Output Total 200 ml 275 ml Balance -200 ml 325 ml 463 ml Intake Oral 600 ml IV Total 463 ml Output Urine Total 200 ml 275 ml # Bowel Movements 0 0 Result Diagram: 10/24/17 1320 10/24/17 1320 Imaging Last Impressions Abdomen/Pelvis CT 10/22/17 0000 Signed Impressions: CONCLUSION: 1. Moderate right hydronephrosis with at least 3 separate calculi in the proxi mal right ureter as above. 2. Mild left hydronephrosis with a possible faintly calcified stone in the pro ximal left ureter measuring just under 1 cm. Left ureter remains dilated to the level of the bladder. Elizabeth catheter in bladder. 3. No other acute findings on abdomen and pelvic CT. Objective Remarks GENERAL: Elderly white female in no acute distress, appears much older than stated age. HEENT: PERRLA, EOMI. No scleral icterus or conjunctival pallor. No lid lag or facial droop. CARDIOVASCULAR: Regular rate and rhythm. No obvious murmurs to auscultation. No chest tenderness to palpation. RESPIRATORY: No obvious rhonchi or wheezing. Clear to auscultation. Breath sounds equal bilaterally. GASTROINTESTINAL: Abdomen soft, non-tender, nondistended. BS normal. MUSCULOSKELETAL: Extremities without clubbing, cyanosis, or edema. No obvious deformities. NEUROLOGICAL: Awake, alert, dementia at baseline, poor historian but answering few questions, incoherent speech at times. No focal neurologic deficits. Moving both upper and lower extremities spontaneously. A/P Problem List: (1) Sepsis ICD Code: A41.9 - Sepsis, unspecified organism Status: Acute (2) UTI (lower urinary tract infection) ICD Code: N39.0 - Lower urinary tract infectious disease Status: Acute (3) Hydronephrosis ICD Code: N13.30 - Unspecified hydronephrosis (4) SARAH (acute kidney injury) ICD Code: N17.9 - Acute kidney failure, unspecified Status: Acute (5) A-fib ICD Code: I48.91 - Unspecified atrial fibrillation (6) Dementia ICD Code: F03.90 - Unspecified dementia without behavioral disturbance Status: Acute Assessment and Plan 1. Sepsis: Temp 100.8, HR 130's, WBC 21, Lactic Acid 2.9, Source-UTI. S/p Blood/Urine cultures, Vanc/Zosyn in ER, follow up cultures, continue IV Abx, IVF , repeat Lactic Acid 10/23 continue IV cefepime, IV fluids. WBC trending down. Continue to monitor CBC. Lactic acid within normal range. 10/24 blood culture positive for Proteus species sensitive to cefepime. Recheck blood cultures. 2. UTI: U/a w/ significant UTI, continue w/ IV Abx, follow up urine cultures, IVF for hydration, monitor I/O. 10/23 urine cultures growing gram-negative rods. 10/24 urine cultures growing Proteus mirabilis. Continue cefepime. 3. Hydronephrosis: CT Abd/Pelvis w/ moderate right hydronephrosis and mild left hydronephrosis due to stone, images reviewed by me, Consult Urology for further evaluation/intervention. Flomax, analgesics/antiemetics as needed. 10/23 urology consultation pending. 10/24 appreciate urology consultation recommendations. Dr. Gomes who recommended conservative management as creatinine is improving. 4. SARAH: Creatinine 2.06, previously 0.79 on 09/02/16, secondary to UTI/ Hydronephrosis, IVF for hydration, repeat labs in am. 10/24 acute kidney injury likely due to prerenal azotemia secondary to sepsis due to UTI. Creatinine is continues to trend down and 1.12 today. Continue IV fluids, continue to monitor BUN and creatinine, strict I's and O's, avoid nephrotoxins. 5. A-fib: w/ RVR, s/p IVF and Lopressor in ER w/ resolution, HR 80's, will continue to monitor, likely exacerbated by Sepsis. Telemetry. 10/23 A. fib now rate controlled. Continue to monitor telemetry. 10/24 heart rate is slightly increased into the 110s. I will start the patient on Cardizem p.o. 6. Dementia: Seemingly at baseline, answers few questions appropriately, incoherent speech at times. Resume home Aricept 7. DVT Prophylaxis: SCD/Teds 8. Social work for d/c planning as needed 9. labs/records/imaging reviewed by me. Discharge Planning Continue to monitor on the medical floor. Pending neurology consultation clinical improvement. Mata Ga MD Oct 24, 2017 14:59
[2017-10-24] MEDS ORDERED: POTASSIUM CHLORIDE 10 MEQ CONTROLLED RELEASE TAB PO ONE (15:00)
[2017-10-24 15:18] LABS: BANDS 6 % (0-6); LYMPHOCYTES 10 % (9-44); MONOCYTES 3 % (0-8); NEUTROPHIL # MANUAL DIFF 11.1 TH/MM3 (1.8-7.7); POLYS (SEG NEUTROPHILS) 81 % (16-70)
[2017-10-24] MEDS: DILTIAZEM HCL 30 MG TAB PO SCH ×2 (15:29→21:19)
[2017-10-24] MEDS: DONEPEZIL HCL 5 MG TAB PO SCH (21:20)
[2017-10-24] MEDS: TAMSULOSIN HCL 0.4 MG CAP PO SCH (21:20)
[2017-10-25] VITALS (8 sets, daily range): BP systolic 115–186; BP diastolic 65–88; PULSE 80–105; RESP 18–20; TEMP 97.9–98.8; O2SAT 95–98
[2017-10-25] MEDS: DILTIAZEM HCL 30 MG TAB PO SCH ×4 (03:01→23:10)
[2017-10-25] MEDS: LEVOTHYROXINE SODIUM 50 MCG TAB PO SCH (06:18)
[2017-10-25] MEDS: SODIUM CHLOR 0.9% 1000 ML INJ 1,000 ML IV SCH ×2 (08:46→23:05)
[2017-10-25] MEDS: SODIUM CHLORIDE 0.9% FLUSH 10 ML FLUSH IV FLUSH SCH ×2 (09:00→23:05)
[2017-10-25] MEDS: CEFEPIME INJ 1,000 MG in SODIUM CHLORIDE 0.9% INJ 100 ML IV SCH (09:30)
[2017-10-25] MEDS: DOCUSATE SODIUM 50 MG/SENNA 8.6 MG TAB PO SCH ×2 (09:30→23:09)
[2017-10-25] MEDS: DULoxetine HCl DR 20 MG CAP PO SCH ×2 (09:30→23:10)
[2017-10-25 12:11] LABS: AUTOMATED NEUTROPHIL # 5.6 TH/MM3 (1.8-7.7); BASOPHIL % 0.5 % (0.0-2.0); EOSINOPHIL # 0.1 TH/MM3 (0-0.4); EOSINOPHIL % 1.1 % (0.0-4.0); HEMATOCRIT 35.3 % (35.0-46.0); HEMOGLOBIN 11.9 GM/DL (11.6-15.3); LYMPH % 12.8 % (9.0-44.0); LYMPHOCYTE # 0.9 TH/MM3 (1.0-4.8); MEAN CELL VOLUME 91.7 FL (80.0-100.0); MEAN CORPUSCULAR HEMOGLOBIN 30.9 PG (27.0-34.0); MEAN CORPUSCULAR HGB CONC 33.6 % (32.0-36.0); MEAN PLATELET VOLUME 9.5 FL (7.0-11.0); MONO % 4.9 % (0.0-8.0); MONOCYTE # 0.3 TH/MM3 (0-0.9); NEUT % 80.7 % (16.0-70.0); PLATELET COUNT 218 TH/MM3 (150-450); RED BLOOD COUNT 3.85 MIL/MM3 (4.00-5.30); RED CELL DISTRIBUTION WIDTH 14.4 % (11.6-17.2)
[2017-10-25 12:35] LABS: ALBUMIN 2.3 GM/DL (3.4-5.0); ALKALINE PHOSPHATASE 81 U/L (45-117); ALT (GPT) 20 U/L (10-53); AST (GOT) 17 U/L (15-37); BICARBONATE 17.3 MEQ/L (21.0-32.0); BLOOD UREA NITROGEN 14 MG/DL (7-18); CALCIUM 7.6 MG/DL (8.5-10.1); CHLORIDE 116 MEQ/L (98-107); CREATININE 0.92 MG/DL (0.50-1.00); GLOMERULAR FILTRATION RATE 60 ML/MIN (>89); GLUCOSE,RANDOM 142 MG/DL (74-106); SODIUM (NA) 144 MEQ/L (136-145); TOTAL BILIRUBIN ADULT 0.3 MG/DL (0.2-1.0); TOTAL PROTEIN 6.6 GM/DL (6.4-8.2)
--- NOTE | 2017-10-25 14:21 | HHI.PR ---
Subjective Remarks Deferred entry, the patient was seen earlier at 10:45 AM. The patient states she is having watery diarrhea. Denies abdominal pain, nausea vomiting. Patient is afebrile. Objective Vitals Vital Signs Date Time Temp Pulse Resp B/P (MAP) Pulse Ox O2 Delivery O2 Flow Rate FiO2 10/25/17 11:54 98.3 89 20 152/67 (95) 96 10/25/17 08:25 98.2 89 18 186/88 (120) 98 10/25/17 07:30 80 10/25/17 07:30 80 10/25/17 04:30 98.3 105 20 133/70 (91) 95 10/25/17 00:30 97.9 98 19 138/65 (89) 96 10/24/17 23:44 87 10/24/17 21:09 127 10/24/17 21:00 98.7 72 16 145/63 (90) 96 10/24/17 19:51 108 10/24/17 18:28 91 10/24/17 16:50 97.3 84 20 130/62 (84) 98 I/O 10/24/17 10/24/17 10/24/17 10/25/17 10/25/17 10/25/17 07:00 15:00 23:00 07:00 15:00 23:00 Intake Total 463 ml 400 ml 100 ml Balance 463 ml 400 ml 100 ml Intake Oral 400 ml 100 ml IV Total 463 ml # Voids 2 2 2 # Bowel Movements 1 3 1 Result Diagram: 10/25/17 1045 10/25/17 1045 Imaging Last Impressions Abdomen/Pelvis CT 10/22/17 0000 Signed Impressions: CONCLUSION: 1. Moderate right hydronephrosis with at least 3 separate calculi in the proxi mal right ureter as above. 2. Mild left hydronephrosis with a possible faintly calcified stone in the pro ximal left ureter measuring just under 1 cm. Left ureter remains dilated to the level of the bladder. Elizabeth catheter in bladder. 3. No other acute findings on abdomen and pelvic CT. Objective Remarks GENERAL: Elderly white female in no acute distress, appears much older than stated age. HEENT: PERRLA, EOMI. No scleral icterus or conjunctival pallor. No lid lag or facial droop. CARDIOVASCULAR: Regular rate and rhythm. No obvious murmurs to auscultation. No chest tenderness to palpation. RESPIRATORY: No obvious rhonchi or wheezing. Clear to auscultation. Breath sounds equal bilaterally. GASTROINTESTINAL: Abdomen soft, non-tender, nondistended. BS normal. MUSCULOSKELETAL: Extremities without clubbing, cyanosis, or edema. No obvious deformities. NEUROLOGICAL: Awake, alert, dementia at baseline, poor historian but answering few questions, incoherent speech at times. No focal neurologic deficits. Moving both upper and lower extremities spontaneously. A/P Problem List: (1) Sepsis ICD Code: A41.9 - Sepsis, unspecified organism Status: Acute (2) UTI (lower urinary tract infection) ICD Code: N39.0 - Lower urinary tract infectious disease Status: Acute (3) Hydronephrosis ICD Code: N13.30 - Unspecified hydronephrosis (4) SARAH (acute kidney injury) ICD Code: N17.9 - Acute kidney failure, unspecified Status: Acute (5) A-fib ICD Code: I48.91 - Unspecified atrial fibrillation (6) Dementia ICD Code: F03.90 - Unspecified dementia without behavioral disturbance Status: Acute Assessment and Plan 1. Sepsis: Temp 100.8, HR 130's, WBC 21, Lactic Acid 2.9, Source-UTI. S/p Blood/Urine cultures, Vanc/Zosyn in ER, follow up cultures, continue IV Abx, IVF , repeat Lactic Acid 10/23 continue IV cefepime, IV fluids. WBC trending down. Continue to monitor CBC. Lactic acid within normal range. 10/24 blood culture positive for Proteus species sensitive to cefepime. Recheck blood cultures. 10/25 repeat blood cultures negative 1. Continue to follow-up blood cultures. 2. UTI: U/a w/ significant UTI, continue w/ IV Abx, follow up urine cultures, IVF for hydration, monitor I/O. 10/23 urine cultures growing gram-negative rods. 10/24 urine cultures growing Proteus mirabilis. Continue cefepime. 3. Hydronephrosis: CT Abd/Pelvis w/ moderate right hydronephrosis and mild left hydronephrosis due to stone, images reviewed by me, Consult Urology for further evaluation/intervention. Flomax, analgesics/antiemetics as needed. 10/23 urology consultation pending. 10/24 appreciate urology consultation recommendations. Dr. Gomes who recommended conservative management as creatinine is improving. 4. SARAH: Creatinine 2.06, previously 0.79 on 09/02/16, secondary to UTI/ Hydronephrosis, IVF for hydration, repeat labs in am. 10/24 acute kidney injury likely due to prerenal azotemia secondary to sepsis due to UTI. Creatinine is continues to trend down and 1.12 today. Continue IV fluids, continue to monitor BUN and creatinine, strict I's and O's, avoid nephrotoxins. 10/25 resolved after IV fluid administration. 5. A-fib: w/ RVR, s/p IVF and Lopressor in ER w/ resolution, HR 80's, will continue to monitor, likely exacerbated by Sepsis. Telemetry. 10/23 A. fib now rate controlled. Continue to monitor telemetry. 10/24 heart rate is slightly increased into the 110s. I will start the patient on Cardizem p.o. 10/25 heart rate better improved. Continue Cardizem. 6. Dementia: Seemingly at baseline, answers few questions appropriately, incoherent speech at times. Resume home Aricept 7. Hypokalemia: Status post replacement with oral potassium chloride. Potassium 3.6. Monitor BMP and replace as needed. 8. Diarrhea: Check for C. difficile toxin PCR. 9. Foot pain: Patient has a dark scab over in the space of the right and second toe. Consult podiatry. 7. DVT Prophylaxis: SCD/Teds 8. Social work for d/c planning as needed 9. labs/records/imaging reviewed by me. Discharge Planning Continue to monitor on the medical floor. Pending ID consultation. Pending podiatry consultation. Pending C. difficile toxin PCR. Mata Ga MD Oct 25, 2017 14:21
[2017-10-25] MEDS ORDERED: POTASSIUM CHLORIDE 10 MEQ CONTROLLED RELEASE TAB PO ONE (15:00)
--- NOTE | 2017-10-25 18:04 | MB ---
cc: Prosper Carbajal DPMProsper Roa DPM DATE: 10/25/2017 REASON FOR CONSULTATION: Right foot pain, possible infection,s kin xerosis. HISTORY OF PRESENT ILLNESS: This is a 72-year-old female who apparently was admitted for abdominal pain. The patient's son called EMS. The patient is not the best historian. I am seeing the patient bedside regarding a lower extremity complaint. She is pleasant, appropriate, but she is not making much sense regarding the lower extremity issue. Much of the history is taken from the chart. PAST MEDICAL HISTORY: Anxiety, depression, breast CA, COPD, dementia. PAST SURGICAL HISTORY: Left knee replacement, cholecystectomy, hysterectomy, subdural hematoma, dental extraction, right mastectomy. Upon asking the patient when the last time she ambulated was, she could not recall. ALLERGIES: BUPROPION, MULTIDRUG RESISTANT ORGANISMS INPATIENT MEDICATIONS: Cefepime. Please see complete med list in chart. PHYSICAL EXAMINATION: GENERAL: This is an alert and somewhat oriented female. She is verbal, somewhat appropriate, a poor historian. EXTREMITIES: Bilateral lower extremities are examined. There is noted to be an obvious flexure contracture with tightness upon palpating the posterior Achilles. I do not think this patient has ambulated in quite some time given the flexure contractures. There is noted to be dry blood at the base of the right hallux nail. Upon pressure to the area, there is no ulcer, abscess or signs of infection. Interdigital dry skin is noted but no obvious gangrene. There are no signs of foreign body. There is diffuse pitting edema of the dorsum of the feet, but this appears to be consistent with a patient who does not move her feet and ankles much. Pulses are hard to palpate, but they appear to be intact. Sensation appears to be intact to noxious stimuli. Nails are mildly elongated, however, no obvious ingrown toenail or bacterial infection noted. LABORATORY DATA: White blood cell 7, hemoglobin and hematocrit 11 and 35, platelet count 218. Chem-7: Sodium 144, potassium 3.6, chloride 116, CO2 of 17.3, BUN 14, creatinine 0.92, random glucose is 142. Lactic acid 1.2. ASSESSMENT AND PLAN: Right foot, resolving subungual hematoma with interdigital skin xerosis and overall poor hygiene and bathing habits. My recommendation is a shaving cream bath to take place daily to help remove some of the dried skin. The patient will need routine foot care on an outpatient basis once discharged, due to the patient being on anticoagulation medications. Orders for hygiene were written for nursing. Reconsult if there are any new issues, otherwise, outpatient followup recommended. NADIA Alex/ , 05:42 PM , 06:03 PM
[2017-10-25] MEDS: DONEPEZIL HCL 5 MG TAB PO SCH (23:09)
[2017-10-25] MEDS: TAMSULOSIN HCL 0.4 MG CAP PO SCH (23:11)
[2017-10-26] VITALS (8 sets, daily range): BP systolic 118–193; BP diastolic 59–84; PULSE 71–100; RESP 18–22; TEMP 97.2–98.6; O2SAT 94–96
[2017-10-26] MEDS: SODIUM CHLOR 0.9% 1000 ML INJ 1,000 ML IV SCH (03:28)
[2017-10-26] MEDS: DILTIAZEM HCL 30 MG TAB PO SCH ×4 (03:28→21:24)
[2017-10-26] MEDS: LEVOTHYROXINE SODIUM 50 MCG TAB PO SCH (06:01)
[2017-10-26 07:20] LABS: HEMATOCRIT 33.5 % (35.0-46.0); HEMOGLOBIN 11.5 GM/DL (11.6-15.3); MEAN CELL VOLUME 91.3 FL (80.0-100.0); MEAN CORPUSCULAR HEMOGLOBIN 31.3 PG (27.0-34.0); MEAN CORPUSCULAR HGB CONC 34.3 % (32.0-36.0); MEAN PLATELET VOLUME 8.9 FL (7.0-11.0); PLATELET COUNT 263 TH/MM3 (150-450); RED BLOOD COUNT 3.68 MIL/MM3 (4.00-5.30); WHITE BLOOD COUNT 5.7 TH/MM3 (4.0-11.0)
[2017-10-26 07:35] LABS: BICARBONATE 21.7 MEQ/L (21.0-32.0); CREATININE 0.88 MG/DL (0.50-1.00)
[2017-10-26] MEDS ORDERED: POTASSIUM CHLORIDE 10 MEQ CONTROLLED RELEASE TAB PO ONE (08:00)
[2017-10-26] MEDS: DOCUSATE SODIUM 50 MG/SENNA 8.6 MG TAB PO SCH ×2 (09:00→21:00)
[2017-10-26] MEDS: SODIUM CHLORIDE 0.9% FLUSH 10 ML FLUSH IV FLUSH SCH ×2 (09:00→21:00)
[2017-10-26] MEDS: CEFEPIME INJ 1,000 MG in SODIUM CHLORIDE 0.9% INJ 100 ML IV SCH (09:00)
[2017-10-26] MEDS: POTASSIUM CHLOR 20 MEQ PREMIX 100 ML IV SCH ×2 (09:53→12:00)
[2017-10-26] MEDS: DULoxetine HCl DR 20 MG CAP PO SCH ×2 (09:54→21:24)
[2017-10-26] MEDS: MEGESTROL ACETATE SUSP 400 MG/10 ML CUP PO SCH (09:54)
[2017-10-26] MEDS: LACTOBACILLUS ACIDOPHILUS TAB PO SCH ×3 (09:54→18:00)
[2017-10-26] MEDS: POTASSIUM CHLORIDE INJ 20 MEQ, SODIUM CHLORIDE 23.4% INJ 38.5 MEQ in WATER STERILE FOR ... IV SCH ×2 (10:00→21:24)
[2017-10-26] MEDS: DIPHENOXYLATE/ATROPINE 2.5 MG/0.025 MG TAB PO SCH ×3 (10:07→23:43)
--- NOTE | 2017-10-26 11:33 | HHI.PR ---
Subjective Remarks Patient is complaining of generalized body aches. Denies fevers or chills. Patient still having diarrhea. Potassium severely low. The patient's states that the patient was very constipated at home and he gave her some medications to have a bowel movement. Objective Vitals Vital Signs Date Time Temp Pulse Resp B/P (MAP) Pulse Ox O2 Delivery O2 Flow Rate FiO2 10/26/17 08:08 98.6 82 20 184/84 (117) 95 10/26/17 05:30 98.6 97 19 118/70 (86) 96 10/26/17 00:30 98.0 100 20 120/66 (84) 95 10/25/17 20:15 98.8 88 19 115/67 (83) 96 10/25/17 15:47 97.9 81 20 161/74 (103) 95 10/25/17 12:00 92 10/25/17 11:54 98.3 89 20 152/67 (95) 96 I/O 10/25/17 10/25/17 10/25/17 10/26/17 10/26/17 10/26/17 07:00 15:00 23:00 07:00 15:00 23:00 Intake Total 100 ml 100 ml 1000 ml Balance 100 ml 100 ml 1000 ml Intake Oral 100 ml 100 ml 0 ml IV Total 1000 ml # Voids 2 2 2 9 # Bowel Movements 3 1 0 3 Result Diagram: 10/26/1765410/26/17654 Objective Remarks GENERAL: Elderly white female in no acute distress, appears much older than stated age. HEENT: PERRLA, EOMI. No scleral icterus or conjunctival pallor. No lid lag or facial droop. CARDIOVASCULAR: Regular rate and rhythm. No obvious murmurs to auscultation. No chest tenderness to palpation. RESPIRATORY: No obvious rhonchi or wheezing. Clear to auscultation. Breath sounds equal bilaterally. GASTROINTESTINAL: Abdomen soft, non-tender, nondistended. BS normal. MUSCULOSKELETAL: Extremities without clubbing, cyanosis, or edema. No obvious deformities. NEUROLOGICAL: Awake, alert, dementia at baseline, poor historian but answering few questions, incoherent speech at times. No focal neurologic deficits. Moving both upper and lower extremities spontaneously. A/P Problem List: (1) Sepsis ICD Code: A41.9 - Sepsis, unspecified organism Status: Acute (2) UTI (lower urinary tract infection) ICD Code: N39.0 - Lower urinary tract infectious disease Status: Acute (3) Hydronephrosis ICD Code: N13.30 - Unspecified hydronephrosis (4) SARAH (acute kidney injury) ICD Code: N17.9 - Acute kidney failure, unspecified Status: Acute (5) A-fib ICD Code: I48.91 - Unspecified atrial fibrillation (6) Dementia ICD Code: F03.90 - Unspecified dementia without behavioral disturbance Status: Acute Assessment and Plan 1. Sepsis: Temp 100.8, HR 130's, WBC 21, Lactic Acid 2.9, Source-UTI. S/p Blood/Urine cultures, Vanc/Zosyn in ER, follow up cultures, continue IV Abx, IVF , repeat Lactic Acid 10/23 continue IV cefepime, IV fluids. WBC trending down. Continue to monitor CBC. Lactic acid within normal range. 10/24 blood culture positive for Proteus species sensitive to cefepime. Recheck blood cultures. 10/25 repeat blood cultures negative 1. Continue to follow-up blood cultures. 6 08/26 repeat blood cultures negative 2. Continue to follow-up blood cultures. 2. UTI: U/a w/ significant UTI, continue w/ IV Abx, follow up urine cultures, IVF for hydration, monitor I/O. 10/23 urine cultures growing gram-negative rods. Urine cultures growing Proteus mirabilis. Continue cefepime. 3. Hydronephrosis: CT Abd/Pelvis w/ moderate right hydronephrosis and mild left hydronephrosis due to stone, images reviewed by me, Consult Urology for further evaluation/intervention. Flomax, analgesics/antiemetics as needed. 10/23 urology consultation pending. 10/24 appreciate urology consultation recommendations. Dr. Gomes who recommended conservative management as creatinine is improving. 10/26 creatinine back to baseline. 4. SARAH: Creatinine 2.06, previously 0.79 on 09/02/16, secondary to UTI/ Hydronephrosis, IVF for hydration, repeat labs in am. 10/24 acute kidney injury likely due to prerenal azotemia secondary to sepsis due to UTI. Creatinine is continues to trend down and 1.12 today. Continue IV fluids, continue to monitor BUN and creatinine, strict I's and O's, avoid nephrotoxins. 10/25 resolved after IV fluid administration. 5. A-fib: w/ RVR, s/p IVF and Lopressor in ER w/ resolution, HR 80's, will continue to monitor, likely exacerbated by Sepsis. Telemetry. 10/23 A. fib now rate controlled. Continue to monitor telemetry. 10/24 heart rate is slightly increased into the 110s. I will start the patient on Cardizem p.o. 10/25 heart rate better improved. Continue Cardizem. 6. Dementia: Seemingly at baseline, answers few questions appropriately, incoherent speech at times. Resume home Aricept 7. Hypokalemia: Status post replacement with oral potassium chloride. Potassium 3.6. Monitor BMP and replace as needed. 10/26 patient with severe hypokalemia with a potassium level of 2.9. We will replace with IV potassium chloride and oral potassium. Will repeat BMP later today. 8. Diarrhea: C. difficile toxin PCR negative. I will start the patient on Lomotil, Lactobacillus acidophilus. 9. Foot pain: Appreciate podiatry consultation recommendations. Recommended a shaving cream bath daily to help remove dry skin. 7. DVT Prophylaxis: SCD/Teds 8. Social work for d/c planning as needed 9. labs/records/imaging reviewed by me. Discharge Planning Continue to monitor on the medical floor. Test pending resolution of diarrhea and ID consult. Mtaa Ga MD Oct 26, 2017 11:33
--- NOTE | 2017-10-26 19:47 | PD.ID.CON ---
History of Present Illness Service ID Consult Requested By Dr Gann Reason for Consult positive blood cultures Primary Care Physician Franco Mcdonough MD Diagnoses: History of Present Illness Pt is a very poor histoeriamn HIstory obtained from the chart This is a 72-year-old female with Dementia who was brought to the ER by EMS for c/o abdominal pain. On presentation febrile 100.8.F, tachycardic and has WBC 21.4. In ARF with Creatinine of 2.06, Also Lactic Acid 2.9. UA positive for significant UTI. CT Abdomen/Pelvis moderate right hydronephrosis with 3 separate calculi in proximal right ureter, mild left hydronephrosis with faintly calcified stone in proximal left ureter measuring under 1 cm. Urology saw the pt, recommended conservative mngmnt Blood and urine clx grew out Proteus mirabilis, faith S As of today her WBC and creatinine down to normal and repeat blood clx are negative @ 2 days She is afebrile Review of Systems ROS Limitations: Clinical Condition (dementia), Poor Historian Past Family Social History Allergies: Coded Allergies: bupropion (Unverified Allergy, Severe, 12/29/16) *MDRO Multi-Drug Resistant Organism (Verified Adverse Reaction, Unknown, 03/01/16) [facility] (urine) - 04/02/11 Past Medical History Anxiety, Depression, Breast CA, COPD and Dementia Past Surgical History Left Knee Replacement, Cholecystectomy, Hysterectomy, Subdural Hematoma, Dental Extraction, Right Mastectomy Active Ordered Medications Medications where reviewed in EMR Antibiotics Include: cefepime 1 gm daily Family History : Reviewed. No h/o DM or CAD Social History Occasional alcohol. Negative for tobacco. Occasional Marijuana. Physical Exam Vital Signs Vital Signs Date Time Temp Pulse Resp B/P (MAP) Pulse Ox O2 Delivery O2 Flow Rate FiO2 10/26/17 16:04 97.4 71 22 146/63 (90) 96 10/26/17 16:00 88 10/26/17 12:00 74 10/26/17 11:53 97.2 84 22 193/84 (120) 94 10/26/17 08:08 98.6 82 20 184/84 (117) 95 10/26/17 05:30 98.6 97 19 118/70 (86) 96 10/26/17 00:30 98.0 100 20 120/66 (84) 95 10/25/17 20:15 98.8 88 19 115/67 (83) 96 Physical Exam CONSTITUTIONAL/GENERAL: This is an adequately nourished patient, in no apparent distress. TUBES/LINES/DRAINS: SKIN: No jaundice, rashes, or lesions. Skin temperature appropriate. Not diaphoretic. HEAD: Atraumatic. Normocephalic. EYES: Pupils equal and round and reactive. Extraocular motions intact. No scleral icterus. No injection or drainage. Fundi not examined. ENT: Hearing grossly normal. Nose without bleeding or purulent drainage. Throat without visible erythema, exudates, masses, or lesions.edentulosu NECK: Trachea midline. Supple, nontender. No palpable thyroid enlargement or nodularity. CARDIOVASCULAR: Regular rate and rhythm without murmurs, gallops, or rubs. No JVD. Peripheral pulses symmetric. RESPIRATORY/CHEST: Symmetric, unlabored respirations. Clear to auscultation. Breath sounds equal bilaterally. No wheezes, rales, or rhonchi. GASTROINTESTINAL: Abdomen soft, non-tender, nondistended. No hepato-splenomegaly , or palpable masses. No guarding. Bowel sounds present. GENITOURINARY: Without palpable bladder distension. MUSCULOSKELETAL: Extremities without clubbing, cyanosis, or edema. No joint tenderness or effusion noted. No calf tenderness. No mottling or clubbing. LYMPHATICS: No palpable cervical or supraclavicular adenopathy. NEUROLOGICAL: Awake and alert. Motor and sensory grossly within normal limits. Follows commands. Speech clear, but not very coherent. Shows marked memory deficits Moves all extremities. PSYCHIATRIC: calm , coopertaive Laboratory Laboratory Tests Test 10/26/17 06:55 White Blood Count 5.7 Red Blood Count 3.68 Hemoglobin 11.5 Hematocrit 33.5 Mean Corpuscular Volume 91.3 Mean Corpuscular Hemoglobin 31.3 Mean Corpuscular Hemoglobin Concent 34.3 Red Cell Distribution Width 14.0 Platelet Count 263 Mean Platelet Volume 8.9 Blood Urea Nitrogen 8 Creatinine 0.88 Random Glucose 120 Calcium Level 8.0 Sodium Level 147 Potassium Level 2.9 Chloride Level 116 Carbon Dioxide Level 21.7 Anion Gap 9 Estimat Glomerular Filtration Rate 63 Date/Time Source Procedure Growth Status 10/24/17 18:58 Blood Peripheral Aerobic Blood Culture - Preliminary NO GROWTH IN 2 DAYS Resulted 10/24/17 18:58 Blood Peripheral Anaerobic Blood Culture - Preliminary NO GROWTH IN 2 DAYS Resulted 10/22/17 19:38 Urine Catheterized Urine Urine Culture - Final Proteus Mirabilis Complete Result Diagram: 10/26/17 0655 10/26/17 0655 Imaging Last Impressions Abdomen/Pelvis CT 10/22/17 0000 Signed Impressions: CONCLUSION: 1. Moderate right hydronephrosis with at least 3 separate calculi in the proxi mal right ureter as above. 2. Mild left hydronephrosis with a possible faintly calcified stone in the pro ximal left ureter measuring just under 1 cm. Left ureter remains dilated to the level of the bladder. Elizabeth catheter in bladder. 3. No other acute findings on abdomen and pelvic CT. Assessment and Plan Assessment and Plan Kidney stones Obstructive uropathy wit ARF - resolved UTI, Proteus - faith S Sepsis with Proteus bacteremia switch to levaquine IV/PO for 7 days if repeat BC stay negative tomorrow will swuitch to oral levaquine Munira Saunders MD Oct 26, 2017 19:47
[2017-10-26] MEDS ORDERED: LEVOFLOXACIN 750 MG PREMIX INJ 150 ML IV SCH (20:00)
[2017-10-26 21:04] LABS: BICARBONATE 20.8 MEQ/L (21.0-32.0); CALCIUM 8.1 MG/DL (8.5-10.1); CREATININE 0.89 MG/DL (0.50-1.00)
[2017-10-26] MEDS: DONEPEZIL HCL 5 MG TAB PO SCH (21:24)
[2017-10-26] MEDS: TAMSULOSIN HCL 0.4 MG CAP PO SCH (21:24)
[2017-10-27] VITALS (8 sets, daily range): BP systolic 125–197; BP diastolic 66–87; PULSE 76–99; RESP 15–18; TEMP 98–99.1; O2SAT 94–96
[2017-10-27] MEDS: DILTIAZEM HCL 30 MG TAB PO SCH ×4 (03:35→20:47)
[2017-10-27 05:33] LABS: AUTOMATED NEUTROPHIL # 5.6 TH/MM3 (1.8-7.7); BASOPHIL % 0.5 % (0.0-2.0); EOSINOPHIL # 0.1 TH/MM3 (0-0.4); EOSINOPHIL % 1.2 % (0.0-4.0); HEMATOCRIT 35.6 % (35.0-46.0); HEMOGLOBIN 12.1 GM/DL (11.6-15.3); LYMPHOCYTE # 1.1 TH/MM3 (1.0-4.8); MEAN CELL VOLUME 90.5 FL (80.0-100.0); MEAN CORPUSCULAR HEMOGLOBIN 30.9 PG (27.0-34.0); MEAN CORPUSCULAR HGB CONC 34.1 % (32.0-36.0); MEAN PLATELET VOLUME 8.2 FL (7.0-11.0); MONO % 8.8 % (0.0-8.0); MONOCYTE # 0.7 TH/MM3 (0-0.9); NEUT % 74.5 % (16.0-70.0); PLATELET COUNT 282 TH/MM3 (150-450); RED BLOOD COUNT 3.94 MIL/MM3 (4.00-5.30); WHITE BLOOD COUNT 7.5 TH/MM3 (4.0-11.0)
[2017-10-27 05:39] LABS: ALBUMIN 2.7 GM/DL (3.4-5.0); ALT (GPT) 20 U/L (10-53); AST (GOT) 19 U/L (15-37); BICARBONATE 20.8 MEQ/L (21.0-32.0); BLOOD UREA NITROGEN 6 MG/DL (7-18); CALCIUM 7.9 MG/DL (8.5-10.1); CHLORIDE 112 MEQ/L (98-107); CREATININE 0.83 MG/DL (0.50-1.00); GLOMERULAR FILTRATION RATE 68 ML/MIN (>89); GLUCOSE,RANDOM 96 MG/DL (74-106); MAGNESIUM 1.4 MG/DL (1.5-2.5); PHOSPHORUS 1.6 MG/DL (2.5-4.9); SODIUM (NA) 144 MEQ/L (136-145)
[2017-10-27] MEDS: LEVOTHYROXINE SODIUM 50 MCG TAB PO SCH (05:45)
[2017-10-27] MEDS: DIPHENOXYLATE/ATROPINE 2.5 MG/0.025 MG TAB PO SCH ×3 (05:45→16:15)
[2017-10-27 05:47] LABS: ALKALINE PHOSPHATASE 71 U/L (45-117); TOTAL BILIRUBIN ADULT 0.5 MG/DL (0.2-1.0); TOTAL PROTEIN 6.9 GM/DL (6.4-8.2)
[2017-10-27] MEDS: SODIUM CHLORIDE 0.9% FLUSH 10 ML FLUSH IV FLUSH SCH ×2 (09:21→20:47)
[2017-10-27] MEDS: DULoxetine HCl DR 20 MG CAP PO SCH ×2 (09:22→20:47)
[2017-10-27] MEDS: DOCUSATE SODIUM 50 MG/SENNA 8.6 MG TAB PO SCH ×2 (09:22→20:47)
[2017-10-27] MEDS: LACTOBACILLUS ACIDOPHILUS TAB PO SCH ×3 (09:22→16:15)
[2017-10-27] MEDS: CHOLESTYRAMINE 4 GM PACKET PO SCH ×2 (09:22→16:15)
[2017-10-27] MEDS: MEGESTROL ACETATE SUSP 400 MG/10 ML CUP PO SCH (09:22)
[2017-10-27] MEDS: POTASSIUM CHLORIDE INJ 20 MEQ, SODIUM CHLORIDE 23.4% INJ 38.5 MEQ in WATER STERILE FOR ... IV SCH (09:30)
[2017-10-27] MEDS ORDERED: DIATRIZOATE MEGLUM/DIATRIZOATE SOD 9 ML CUP PO ONE (11:04)
--- NOTE | 2017-10-27 11:07 | HHI.PR ---
Subjective Remarks Patient c/o abdominal pain Denies cp/sob As per patient has been c/o abdominal pain for the past week. No nausea or vomiting reported No further reports of diarrhea Objective Vitals Vital Signs Date Time Temp Pulse Resp B/P (MAP) Pulse Ox O2 Delivery O2 Flow Rate FiO2 10/27/17 10:52 16 10/27/17 08:00 98.4 90 18 186/75 (112) 96 10/27/17 08:00 79 10/27/17 01:06 89 10/27/17 00:00 98.1 92 15 135/69 (91) 96 10/26/17 20:00 97.9 82 18 121/59 (79) 96 10/26/17 16:04 97.4 71 22 146/63 (90) 96 10/26/17 16:00 88 10/26/17 12:00 74 10/26/17 11:53 97.2 84 22 193/84 (120) 94 I/O 10/26/17 10/26/17 10/26/17 10/27/17 10/27/17 10/27/17 06:59 14:59 22:59 06:59 14:59 22:59 Intake Total 1000 ml 200 ml 1150 ml Output Total 500 ml Balance 1000 ml 200 ml 650 ml Intake Oral 0 ml 1000 ml IV Total 1000 ml 200 ml 150 ml Output Urine Total 500 ml # Voids 9 # Bowel Movements 3 Result Diagram: 10/27/17 0510 10/27/17 0510 Imaging Last Impressions Abdomen/Pelvis CT 10/22/17 0000 Signed Impressions: CONCLUSION: 1. Moderate right hydronephrosis with at least 3 separate calculi in the proxi mal right ureter as above. 2. Mild left hydronephrosis with a possible faintly calcified stone in the pro ximal left ureter measuring just under 1 cm. Left ureter remains dilated to the level of the bladder. Elizabeth catheter in bladder. 3. No other acute findings on abdomen and pelvic CT. Objective Remarks GENERAL: Elderly white female in no acute distress, appears much older than stated age. HEENT: PERRLA, EOMI. No scleral icterus or conjunctival pallor. No lid lag or facial droop. CARDIOVASCULAR: Regular rate and rhythm. No obvious murmurs to auscultation. No chest tenderness to palpation. RESPIRATORY: No obvious rhonchi or wheezing. Clear to auscultation. Breath sounds equal bilaterally. GASTROINTESTINAL: Abdomen is soft, very tender to palpation diffusely. MUSCULOSKELETAL: Extremities without clubbing, cyanosis, or edema. No obvious deformities. NEUROLOGICAL: Awake, alert, dementia at baseline, poor historian but answering few questions, incoherent speech at times. No focal neurologic deficits. Moving both upper and lower extremities spontaneously. Procedures none A/P Problem List: (1) Sepsis ICD Code: A41.9 - Sepsis, unspecified organism Status: Acute (2) UTI (lower urinary tract infection) ICD Code: N39.0 - Lower urinary tract infectious disease Status: Acute (3) Hydronephrosis ICD Code: N13.30 - Unspecified hydronephrosis (4) SARAH (acute kidney injury) ICD Code: N17.9 - Acute kidney failure, unspecified Status: Acute (5) A-fib ICD Code: I48.91 - Unspecified atrial fibrillation (6) Dementia ICD Code: F03.90 - Unspecified dementia without behavioral disturbance Status: Acute Assessment and Plan 1. Sepsis: Temp 100.8, HR 130's, WBC 21, Lactic Acid 2.9, Source-UTI. S/p Blood/Urine cultures, Vanc/Zosyn in ER, follow up cultures, continue IV Abx, IVF , repeat Lactic Acid 10/23 continue IV cefepime, IV fluids. WBC trending down. Continue to monitor CBC. Lactic acid within normal range. 10/24 blood culture positive for Proteus species sensitive to cefepime. Recheck blood cultures. 10/25 repeat blood cultures negative 1. Continue to follow-up blood cultures. 6 08/26 repeat blood cultures negative 2. Continue to follow-up blood cultures. 2. UTI: U/a w/ significant UTI, continue w/ IV Abx, follow up urine cultures, IVF for hydration, monitor I/O. 10/23 urine cultures growing gram-negative rods. Urine cultures growing Proteus mirabilis. Continue cefepime. 10/27 Dc IV Cefepime, start on Cefuroxime to complete 7 days of treatment. 3. Hydronephrosis: CT Abd/Pelvis w/ moderate right hydronephrosis and mild left hydronephrosis due to stone, images reviewed by me, Consult Urology for further evaluation/intervention. Flomax, analgesics/antiemetics as needed. 10/23 urology consultation pending. 10/24 appreciate urology consultation recommendations. Dr. Gomes who recommended conservative management as creatinine is improving. 10/26 creatinine back to baseline. 4. SARAH: Creatinine 2.06, previously 0.79 on 09/02/16, secondary to UTI/ Hydronephrosis, IVF for hydration, repeat labs in am. 10/24 acute kidney injury likely due to prerenal azotemia secondary to sepsis due to UTI. Creatinine is continues to trend down and 1.12 today. Continue IV fluids, continue to monitor BUN and creatinine, strict I's and O's, avoid nephrotoxins. 10/25 resolved after IV fluid administration. 5. A-fib: w/ RVR, s/p IVF and Lopressor in ER w/ resolution, HR 80's, will continue to monitor, likely exacerbated by Sepsis. Telemetry. 10/23 A. fib now rate controlled. Continue to monitor telemetry. 10/24 heart rate is slightly increased into the 110s. I will start the patient on Cardizem p.o. 10/25 heart rate better improved. Continue Cardizem. 6. Dementia: Seemingly at baseline, answers few questions appropriately, incoherent speech at times. Resume home Aricept 7. Hypokalemia: Status post replacement with oral potassium chloride. Potassium 3.6. Monitor BMP and replace as needed. 10/26 patient with severe hypokalemia with a potassium level of 2.9. We will replace with IV potassium chloride and oral potassium. Will repeat BMP later today. 8. Diarrhea: C. difficile toxin PCR negative. I will start the patient on Lomotil, Lactobacillus acidophilus. 10/27 Diarrhea improving. Continue above management 9. Foot pain: Appreciate podiatry consultation recommendations. Recommended a shaving cream bath daily to help remove dry skin. 10. Abdominal pain: As per patient c/o abdominal pain for last week. Patient very tender on palpation of abdomen today. Will check CT abdomen and pelvis. 11. DVT Prophylaxis: SCD/Teds 12. Social work for d/c planning as needed 13. labs/records/imaging reviewed by me. Discharge Planning DC pending CT abdomen and pelvis. Mata Ga MD Oct 27, 2017 11:07
[2017-10-27] MEDS ORDERED: LEVOFLOXACIN 750 MG PREMIX INJ 150 ML IV SCH (20:00)
[2017-10-27] MEDS ORDERED: IOHEXOL 350 MG/ML 10 ML VIAL (for RAD DIAG) IVCONTRAST ONE (20:17)
--- NOTE | 2017-10-27 20:36 | RADRPT ---
EXAM DATE: 10/27/2017 8:19 PM EDT AGE/SEX: 72 years / Female INDICATIONS: Abdominal pain. CLINICAL DATA: This is the patient's initial encounter. Patient reports that signs and symptoms have been present for 1 day and indicates a pain score of 7/10. MEDICAL/SURGICAL HISTORY: Carcinoma, breast. Chronic obstructive pulmonary disease. Hysterecto my. Cholecystectomy. Appendectomy. ORAL CONTRAST: Prescribed oral contrast ingested. RADIATION DOSE: 15.64 CTDI (mGy) COMPARISON: [facility] – [place] ABDOMEN & PELVIS W CONTRAST, 11/17/2014. . TECHNIQUE: Multiple contiguous axial images were obtained through the abdomen and pelvis following b olus infusion of 100 ml Omnipaque 350 (iohexol) nonionic water-soluble contrast as a single exam do se. Prescribed oral contrast ingested. Using automated exposure control and adjustment of the mA and /or kV according to patient size, the radiation dose was kept as low as reasonably achievable to obta in optimal diagnostic quality images. FINDINGS: Lower Lungs: The visualized lower lungs are clear. Liver: The liver has a homogeneous density without space-occupying lesion. There is no dilation of th e biliary tree. Spleen: Homogeneous density without enlargement. Pancreas: Unremarkable without mass or calcification. Kidneys: Bilateral parapelvic renal cysts. There is mild hydronephrosis right kidney secondary to a right proximal ureteral calculus measuring 4 to 5 mm. Nonobstructing calculus lower pole right kidney measures 6 to 7 mm. There is mild hydronephrosis of the left and hydroureter leading to the urinary bladder. Several nonobstructing left-sided renal calculi measuring 5 to 7 mm in size. Adrenal Glands: Unremarkable. Aorta: The aorta and proximal iliac vessels are grossly unremarkable without aneurysmal dilation. Bowel/Mesentery: The bowel loops are grossly unremarkable. The cecum and sigmoid colon have a normal configuration. Abdominal Wall: Intact. Retroperitoneum: No evidence of adenopathy in the retrocrural, para-aortic, or deep pelvic regions. Bladder: Wall thickening of the urinary bladder greatest to the left measuring 12 mm.. Reproductive Organs: No abnormal masses or calcifications seen. Uterus is absent. Inguinal: The inguinal region is unremarkable without evidence of adenopathy. Bony Structures: Scoliosis and degenerative changes. CONCLUSION: 1. Circumferential wall thickening urinary bladder but greater on the left concerning for neoplasm. 2. Obstruction of the left kidney and left ureter. 3. Bilateral nonobstructing renal calculi as described above. 4. There appears to be a proximal ureteral calculus on the right measuring 4 to 5 mm causing mild ob struction of the right kidney. 5. Bilateral parapelvic renal cysts. Electronically signed by: Lasha Reid MD 10/27/2017 8:34 PM EDT
[2017-10-27] MEDS: TAMSULOSIN HCL 0.4 MG CAP PO SCH (20:47)
[2017-10-27] MEDS: DONEPEZIL HCL 5 MG TAB PO SCH (20:47)
[2017-10-28] VITALS (7 sets, daily range): BP systolic 122–168; BP diastolic 62–74; PULSE 66–95; RESP 16–18; TEMP 97.4–99.3; O2SAT 94–95
[2017-10-28] MEDS: CHOLESTYRAMINE 4 GM PACKET PO SCH ×2 (03:03→08:33)
[2017-10-28] MEDS: DILTIAZEM HCL 30 MG TAB PO SCH ×3 (03:04→11:57)
[2017-10-28] MEDS: DIPHENOXYLATE/ATROPINE 2.5 MG/0.025 MG TAB PO SCH ×4 (07:17→11:55)
[2017-10-28] MEDS: LEVOTHYROXINE SODIUM 50 MCG TAB PO SCH (07:19)
[2017-10-28] MEDS: SODIUM CHLORIDE 0.9% FLUSH 10 ML FLUSH IV FLUSH SCH (08:32)
[2017-10-28] MEDS: POTASSIUM CHLORIDE INJ 20 MEQ, SODIUM CHLORIDE 23.4% INJ 38.5 MEQ in WATER STERILE FOR ... IV SCH ×2 (08:32→08:40)
[2017-10-28] MEDS: DULoxetine HCl DR 20 MG CAP PO SCH (08:33)
[2017-10-28] MEDS: MEGESTROL ACETATE SUSP 400 MG/10 ML CUP PO SCH (08:33)
[2017-10-28] MEDS: DOCUSATE SODIUM 50 MG/SENNA 8.6 MG TAB PO SCH (08:33)
[2017-10-28] MEDS: LACTOBACILLUS ACIDOPHILUS TAB PO SCH ×2 (08:33→11:55)
--- NOTE | 2017-10-28 12:22 | HHI.PR ---
Subjective Remarks Diarrhea has resolved. Patient states abdominal pain is still present but better. Denies fevers or chills. Objective Vitals Vital Signs Date Time Temp Pulse Resp B/P (MAP) Pulse Ox O2 Delivery O2 Flow Rate FiO2 10/28/17 08:00 97.8 95 16 122/62 (82) 95 10/28/17 07:39 74 10/28/17 04:11 83 10/28/17 04:00 97.4 78 18 168/71 (103) 94 10/28/17 00:00 99.3 94 18 158/74 (102) 95 10/27/17 23:49 91 10/27/17 20:00 99 10/27/17 20:00 99.1 93 18 197/86 (123) 96 10/27/17 16:00 98.0 89 18 125/87 (100) 94 10/27/17 16:00 91 10/27/17 11:54 98.5 82 18 163/66 (98) 95 I/O 10/27/17 10/27/17 10/27/17 10/28/17 10/28/17 10/28/17 07:00 15:00 23:00 07:00 15:00 23:00 Intake Total 1000 ml 950 ml Output Total 500 ml 1000 ml Balance 500 ml -1000 ml 950 ml Intake Oral 1000 ml IV Total 950 ml Output Urine Total 500 ml 1000 ml # Voids 1 # Bowel Movements 1 1 Result Diagram: 10/27/17 0510 10/27/17 0510 Imaging Last Impressions Abdomen/Pelvis CT 10/27/17 0000 Signed Impressions: CONCLUSION: 1. Circumferential wall thickening urinary bladder but greater on the left con cerning for neoplasm. 2. Obstruction of the left kidney and left ureter. 3. Bilateral nonobstructing renal calculi as described above. 4. There appears to be a proximal ureteral calculus on the right measuring 4 t o 5 mm causing mild obstruction of the right kidney. 5. Bilateral parapelvic renal cysts. Objective Remarks GENERAL: Elderly white female in no acute distress, appears much older than stated age. HEENT: PERRLA, EOMI. No scleral icterus or conjunctival pallor. No lid lag or facial droop. CARDIOVASCULAR: Regular rate and rhythm. No obvious murmurs to auscultation. No chest tenderness to palpation. RESPIRATORY: No obvious rhonchi or wheezing. Clear to auscultation. Breath sounds equal bilaterally. GASTROINTESTINAL: Abdomen is soft, very tender to palpation diffusely. MUSCULOSKELETAL: Extremities without clubbing, cyanosis, or edema. No obvious deformities. NEUROLOGICAL: Awake, alert, dementia at baseline, poor historian but answering few questions, incoherent speech at times. No focal neurologic deficits. Moving both upper and lower extremities spontaneously. Procedures none A/P Problem List: (1) Sepsis ICD Code: A41.9 - Sepsis, unspecified organism Status: Acute (2) UTI (lower urinary tract infection) ICD Code: N39.0 - Lower urinary tract infectious disease Status: Acute (3) Hydronephrosis ICD Code: N13.30 - Unspecified hydronephrosis (4) SARAH (acute kidney injury) ICD Code: N17.9 - Acute kidney failure, unspecified Status: Acute (5) A-fib ICD Code: I48.91 - Unspecified atrial fibrillation (6) Dementia ICD Code: F03.90 - Unspecified dementia without behavioral disturbance Status: Acute Assessment and Plan 1. Sepsis: Temp 100.8, HR 130's, WBC 21, Lactic Acid 2.9, Source-UTI. S/p Blood/Urine cultures, Vanc/Zosyn in ER, follow up cultures, continue IV Abx, IVF , repeat Lactic Acid 10/23 continue IV cefepime, IV fluids. WBC trending down. Continue to monitor CBC. Lactic acid within normal range. 10/24 blood culture positive for Proteus species sensitive to cefepime. Recheck blood cultures. 10/25 repeat blood cultures negative 1. Continue to follow-up blood cultures. 6 08/26 repeat blood cultures negative 2. Continue to follow-up blood cultures. 2. UTI: U/a w/ significant UTI, continue w/ IV Abx, follow up urine cultures, IVF for hydration, monitor I/O. 10/23 urine cultures growing gram-negative rods. Urine cultures growing Proteus mirabilis. Continue cefepime. 10/27 Dc IV Cefepime, start on Cefuroxime to complete 7 days of treatment. 3. Hydronephrosis: CT Abd/Pelvis w/ moderate right hydronephrosis and mild left hydronephrosis due to stone, images reviewed by me, Consult Urology for further evaluation/intervention. Flomax, analgesics/antiemetics as needed. 6/10 urology consultation pending. 10/24 appreciate urology consultation recommendations. Dr. Gomes who recommended conservative management as creatinine is improving. 10/26 creatinine back to baseline. 4. SARAH: Creatinine 2.06, previously 0.79 on 09/02/16, secondary to UTI/ Hydronephrosis, IVF for hydration, repeat labs in am. 10/24 acute kidney injury likely due to prerenal azotemia secondary to sepsis due to UTI. Creatinine is continues to trend down and 1.12 today. Continue IV fluids, continue to monitor BUN and creatinine, strict I's and O's, avoid nephrotoxins. 10/25 resolved after IV fluid administration. 5. A-fib: w/ RVR, s/p IVF and Lopressor in ER w/ resolution, HR 80's, will continue to monitor, likely exacerbated by Sepsis. Telemetry. 10/23 A. fib now rate controlled. Continue to monitor telemetry. 10/24 heart rate is slightly increased into the 110s. I will start the patient on Cardizem p.o. 10/25 heart rate better improved. Continue Cardizem. 6. Dementia: Seemingly at baseline, answers few questions appropriately, incoherent speech at times. Resume home Aricept 7. Hypokalemia: Status post replacement with oral potassium chloride. Potassium 3.6. Monitor BMP and replace as needed. 10/26 patient with severe hypokalemia with a potassium level of 2.9. We will replace with IV potassium chloride and oral potassium. Will repeat BMP later today. 8. Diarrhea: C. difficile toxin PCR negative. I will start the patient on Lomotil, Lactobacillus acidophilus. 10/27 Diarrhea improving. Continue above management 9. Foot pain: Appreciate podiatry consultation recommendations. Recommended a shaving cream bath daily to help remove dry skin. 10. Abdominal pain: As per patient c/o abdominal pain for last week. Patient very tender on palpation of abdomen today. Will check CT abdomen and pelvis. 10/28 CT abdomen and pelvis showed circumferential wall thickening of the urinary bladder but greater on the left concerning for neoplasm. Obstruction of the left kidney and left ureter, bilateral nonobstructive renal calculi. There appears to be a proximal ureteral calculus on the right measuring 45 mm causing mild obstruction of the right kidney. The patient was already seen by urology. I will have the patient follow-up as an outpatient with Dr. Goems. 11. DVT Prophylaxis: SCD/Teds 12. Social work for d/c planning as needed 13. labs/records/imaging reviewed by me. Discharge Planning DC pending CT abdomen and pelvis. Mata Ga MD Oct 28, 2017 12:22
[2017-10-28] MEDS ORDERED: LACT PO (12:32)
[2017-10-28] MEDS ORDERED: TAMS5CAP PO (12:32)
--- NOTE | 2017-10-28 12:39 | HHI.DCPOC ---
Discharge Care Plan Diagnosis: (1) Diarrhea (2) Abdominal pain (3) Hypokalemia (4) SARAH (acute kidney injury) (5) UTI (urinary tract infection) (6) Severe sepsis (7) Dementia Goals to Promote Your Health * To prevent worsening of your condition and complications * To maintain your health at the optimal level Directions to Meet Your Goals Take your medications as prescribed Follow your dietary instruction Follow activity as directed Keep your appointments as scheduled Take your immunizations and boosters as scheduled If your symptoms worsen call your PCP, if no PCP go to Urgent Care Center or Emergency Room Smoking is Dangerous to Your Health. Avoid second hand smoke Call the 24-hour hour crisis hotline for domestic abuse at Mata Ga MD Oct 28, 2017 12:39
[2017-10-28] MEDS ORDERED: LEVO750T3 PO (12:43)
== END 2017-10-28 16:05 | DRG 872 ==
LOC: NEPE 17:38 → NEDA 20:42 → N05B 21:53
PROVIDERS: ADMIT Hospitalist; ATTEND Hospitalist
DX: A41.89 Other specified sepsis (principal); N17.9 Acute kidney failure, unspecified; N13.30 Unspecified hydronephrosis; I48.91 Unspecified atrial fibrillation; F03.90 Unspecified dementia, unspecified severity, without behavioral disturbance, psychotic disturbance, mood disturbance, and anxiety; N39.0 Urinary tract infection, site not specified; E87.6 Hypokalemia; L85.3 Xerosis cutis; B96.4 Proteus (mirabilis) (morganii) as the cause of diseases classified elsewhere
CPT/HCPCS: 74176; 74177; 76937; 80048; 80053; 81001; 82948; 83605; 83735; 83880; 84100; 84484; 85007; 85025; 85027; 87040; 87077; 87086; 87186; 87205; 87493; 93005; 96365; 96366; 96375; J0131; J0692; J1956; J2543; J3370; J3480; J7030; J7040; J7050; Q9963; Q9967

== ENCOUNTER 2018-04-24 18:39 | Inpatient (IN) ==
--- NOTE | 2018-04-24 19:53 | ED ---
HPI General Chief Complaint: Altered Mental Status Stated Complaint: Poss AMS Time Seen by Provider: 04/24/18 18:45 Source: family and EMS Mode of arrival: EMS Limitations: altered mental status History of Present Illness HPI narrative: Patient was brought to the emergency department as a Tess Barcenas for evaluation of altered mental status. Patient's called 911, he states that she has been more confused since Tuesday. He states that she can normally stand and pivot but has been unable to do so. She has a history of dementia, he reports foul, strong smelling urine and states that she gets this way when she has a urinary tract infection. Patient reports that her name is Tess Taylor, this was verified with home medications that EMS brought with patient. Her date of is 1945. Patient has no complaints, H&P is limited due to patient's history of dementia. MD complaint: Reports confusion and weakness Onset (ago): day(s) Timing confirmed by: spouse Severity: similar to previous episodes Consistency of symptoms: constant Context: Reports history of similar presentation Associated symptoms: Reports foul smelling urine Related Data Home Medications Medication Instructions Recorded Confirmed celecoxib 200 mg PO DAILY 04/24/18 04/24/18 donepezil 10 mg PO DAILY 04/24/18 04/24/18 duloxetine 20 mg PO BID 04/24/18 04/24/18 levothyroxine 50 mcg PO DAILY 04/24/18 04/24/18 trazodone 50 mg PO DAILY 04/24/18 04/24/18 Allergies Allergy/AdvReac Type Severity Reaction Status Date / Time No Known Allergies Allergy Verified 04/24/18 18:51 Review of Systems ROS Unobtainable ROS Unobtainable: unobtainable due to mental status [facility] Medical History Medical History Dementia (Acute) Hypothyroid (Acute) Insomnia (Acute) UTI (urinary tract infection) (Acute) Social History Social History Substance History: Unable to Obtain Smoking Status: Unknown if ever smoked How Often Do You Have a Drink Containing Alcohol: Unable to Obtain Recent Travel in [facility] within the Last 8 Weeks: No Recent Out of Country Travel within the Last 8 Weeks: No Immunization History Tetanus Immunization: Unable to Assess Exam Narrative Exam Narrative: GENERAL: Well-developed, well-nourished, alert confused elderly female. Presenting in no acute distress. SKIN: Focused skin assessment warm/dry. HEAD: Atraumatic. Normocephalic. EYES: Pupils equal and round, pinpoint. No scleral icterus. No injection or drainage. ENT: No nasal bleeding or discharge. Mucous membranes pink and moist. NECK: Trachea midline. No JVD. CARDIOVASCULAR: Regular rate and rhythm. No murmur appreciated. RESPIRATORY: No accessory muscle use. Clear to auscultation. Breath sounds equal bilaterally. GASTROINTESTINAL: Abdomen soft, non-tender, nondistended. Hepatic and splenic margins not palpable. MUSCULOSKELETAL: No obvious deformities. No clubbing. No cyanosis. No edema. NEUROLOGICAL: Awake and alert. No obvious cranial nerve deficits. Motor grossly within normal limits. Normal speech. PSYCHIATRIC: Appropriate mood and affect; insight and judgment normal. Course Initial Documented Vital Signs Temperature 97.9 F 04/24/18 18:46 Pulse Rate 81 04/24/18 18:46 Respiratory Rate 21 04/24/18 18:46 Blood Pressure 140/65 04/24/18 18:46 Pulse Oximetry 95 04/24/18 18:46 Last Documented Vital Signs Temperature 97.8 F 04/25/18 04:43 Pulse Rate 86 04/25/18 04:43 Respiratory Rate 18 04/25/18 04:43 Blood Pressure 165/67 H 04/25/18 04:43 Pulse Oximetry 95 04/24/18 21:30 Medical Decision Making ANNE Attestation ANNE supervised visit: Yes Attestation: I, Dr. De La Cruz, have reviewed the advance practice practitioner's documentation and am in agreement, met with the patient face to face, made the diagnosis, and the medical decision making was done by me. The patient was initially evaluated by Mirella, the TRUST ADMINISTRATOR. Please see their complete history and physical. *My assessment and Findings: The patient presents with a reported history of altered mentation. Ambulance services were reportedly called by the patient's . He reported to ambulance services that the patient had been increasingly confused since Tuesday. The patient does have a baseline history of dementia. He reported to ambulance services that the patient's urine had been stronger smelling with a bad odor compared to usual. The patient also has a prior history of urinary tract infections. The patient's examination is remarkable for the patient repeating the same phrase multiple times, "I love you ". The patient denies having any pain, however on examination of the patient's pelvis and left hip, patient seems to experience pain with flexion at the hip and has difficulty extending her left knee. The patient has a midline incision over the left knee related to prior left knee surgery. During the course of the patient's emergency department visit, the patient's history, examination, and differential diagnosis were reviewed with the patient. The patient was placed on a cardiac care unit nurse with oximetry and frequent blood pressure monitoring. The patient had IV access obtained and blood work sent for analysis. The patient had a glucose done on arrival that was 113. The patient's diagnostic studies were reviewed and remarkable for a chest x-ray that shows mild basilar atelectasis or scarring, no effusion or pneumothorax, linear scarring right upper lobe. Patient CBC is within normal limits, chemistry is remarkable for GFR 50, TSH within normal limits, urinalysis shows hazy urine, 1 protein, trace ketones, small occult blood, positive nitrite, moderate leukocyte esterase, 36 RBCs, innumerable WBCs with many clumps and many bacteria, culture indicated. The patient was given Rocephin 2 g IV. The patient's urine drug screen is positive for cannabinoids. Left hip and pelvis x -ray showed no acute fracture, osteoarthritis noted. The patient's results were discussed with the patient, including the plan of care. I explained that further testing and/ or monitoring is indicated based on the patient's history, examination, and/ or laboratory findings. Therefore, I recommended admission for additional evaluation. The patient expressed understanding and was agreeable with this plan. The patient was admitted to the hospital in guarded condition and sent to a bed under the care of the [facility] service. [facility] Narrative Medical decision making narrative: Pt presented via EMs for evaluation of increased AMS, weakness. Smell of strong urine odor on presentation. Pt is pleasant, vss. Labs and imaging ordered and pending. CBC, CMP with no acute findings. CXR with no acute findings. UA consistent with UTI, reflex culture pending. Pt given IVF and rocephin 2g IV x 1 dose. UDS is positive for marijuana. [facility] paged for admit due to increased confusion and weakness secondary to the UTI. Dr. Crocker accepted admit, orders placed. Pt is resting comfortably. Medical Screen Exam Complete: Yes Emergency Medical Condition: Yes Differential Diagnosis Differential Diagnosis: UTI vs metabolic abnormality vs dementia vs substance use vs other Medical Records Medical records reviewed: Yes I reviewed the patient's medical records. Under actual name of Tess Taylor Lab Data Lab results reviewed: Yes I reviewed the patient's lab results. Result diagrams: 04/24/18 19:14 04/24/18 19:14 Lab Results 04/24/18 04/24/18 04/24/18 Range/Units 19:14 19:14 19:14 WBC 5.7 (4.0-11.0) th/mm3 RBC 4.47 (4.00-5.30) mil/mm3 Hgb 14.3 (11.6-15.3) gm/dL Hct 41.9 (35.0-46.0) % MCV 93.7 (80.0-100.0) fL MCH 32.1 (27.0-34.0) pg MCHC 34.2 (32.0-36.0) % RDW 14.4 (11.6-17.2) % Plt Count 279 (150-450) th/mm3 MPV 8.4 (7.0-11.0) fL Neut % (Auto) 64.2 (16.0-70.0) % Lymph % (Auto) 28.1 (9.0-44.0) % [place] % (Auto) 5.2 (0.0-8.0) % Eos % (Auto) 1.5 (0.0-4.0) % Baso % (Auto) 1.0 (0.0-2.0) % Neut # (Auto) 3.7 (1.8-7.7) th/mm3 Lymph # (Auto) 1.6 (1.0-4.8) th/mm3 [place] # (Auto) 0.3 (0.0-0.9) th/mm3 Eos # (Auto) 0.1 (0.0-0.4) th/mm3 Baso # (Auto) 0.1 (0.0-0.2) th/mm3 WBC Differential . Differential Comment Auto diff final Sodium 140 (136-145) meq/L Potassium 4.1 (3.5-5.1) meq/L Chloride 106 (98-107) meq/L Carbon Dioxide 26.5 (21.0-32.0) meq/L Anion Gap 8 (5-15) meq/L BUN 10 (7-18) mg/dL Creatinine 0.96 (0.50-1.00) mg/dL Estimated GFR 50 L (>89) mL/min POC Glucose (68-110) mg/dl Random Glucose 104 (74-106) mg/dL Calcium 8.9 (8.5-10.1) mg/dL Magnesium 2.2 (1.5-2.5) mg/dL Total Bilirubin 0.5 (0.2-1.0) mg/dL AST 24 (15-37) U/L ALT 20 (10-53) U/L Alkaline Phosphatase 93 (45-117) U/L Total Protein 8.1 (6.4-8.2) g/dL Albumin 3.7 (3.4-5.0) g/dL TSH 1.310 (0.358-3.740) uIU/mL Urine Color (Yellw/Straw) Urine Clarity (Clear) Urine pH (5.0-8.5) Ur Specific [place] (1.002-1.035) Urine Protein (Neg-Trace) mg/dL Urine Glucose (UA) (Negative) mg/dL Urine Ketones (Negative) mg/dL Urine Occult Blood (Negative) Urine Nitrate (Negative) Urine Bilirubin (Negative) Urine Urobilinogen (Less than 2) mg/dL Ur Leukocyte Esterase (Negative) Urine RBC (0-3) /hpf Urine WBC (0-5) /hpf Urine WBC Clumps (None) Ur Squamous Epith Cells (0-5) /hpf Urine Bacteria (None) /hpf Urine Mucus (Occasional) /lpf Micro UA Comment Ur Microscopic Review Urine Culture Comments Urine Opiates Screen Neg (Neg) Ur Barbiturates Screen Neg (Neg) Ur Amphetamines Screen Neg (Neg) U Benzodiazepines Scrn Neg (Neg) Urine Cocaine Screen Neg (Neg) U Cannabinoids Screen Pos H (Neg) 04/24/18 04/24/18 Range/Units 19:14 19:32 WBC (4.0-11.0) th/mm3 RBC (4.00-5.30) mil/mm3 Hgb (11.6-15.3) gm/dL Hct (35.0-46.0) % MCV (80.0-100.0) fL MCH (27.0-34.0) pg MCHC (32.0-36.0) % RDW (11.6-17.2) % Plt Count (150-450) th/mm3 MPV (7.0-11.0) fL Neut % (Auto) (16.0-70.0) % Lymph % (Auto) (9.0-44.0) % [place] % (Auto) (0.0-8.0) % Eos % (Auto) (0.0-4.0) % Baso % (Auto) (0.0-2.0) % Neut # (Auto) (1.8-7.7) th/mm3 Lymph # (Auto) (1.0-4.8) th/mm3 [place] # (Auto) (0.0-0.9) th/mm3 Eos # (Auto) (0.0-0.4) th/mm3 Baso # (Auto) (0.0-0.2) th/mm3 WBC Differential Differential Comment Sodium (136-145) meq/L Potassium (3.5-5.1) meq/L Chloride (98-107) meq/L Carbon Dioxide (21.0-32.0) meq/L Anion Gap (5-15) meq/L BUN (7-18) mg/dL Creatinine (0.50-1.00) mg/dL Estimated GFR (>89) mL/min POC Glucose 113 H (68-110) mg/dl Random Glucose (74-106) mg/dL Calcium (8.5-10.1) mg/dL Magnesium (1.5-2.5) mg/dL Total Bilirubin (0.2-1.0) mg/dL AST (15-37) U/L ALT (10-53) U/L Alkaline Phosphatase (45-117) U/L Total Protein (6.4-8.2) g/dL Albumin (3.4-5.0) g/dL TSH (0.358-3.740) uIU/mL Urine Color Yellow (Yellw/Straw) Urine Clarity Hazy H (Clear) Urine pH 6.0 (5.0-8.5) Ur Specific [place] 1.017 (1.002-1.035) Urine Protein 100 H (Neg-Trace) mg/dL Urine Glucose (UA) Negative (Negative) mg/dL Urine Ketones Trace H (Negative) mg/dL Urine Occult Blood Small H (Negative) Urine Nitrate Positive H (Negative) Urine Bilirubin Negative (Negative) Urine Urobilinogen 2.0 H (Less than 2) mg/dL Ur Leukocyte Esterase Moderate H (Negative) Urine RBC 36 H (0-3) /hpf Urine WBC (0-5) /hpf Urine WBC Clumps Many H (None) Ur Squamous Epith Cells 9 (0-5) /hpf Urine Bacteria Many H (None) /hpf Urine Mucus Few H (Occasional) /lpf Micro UA Comment Cath-culture ind Ur Microscopic Review Not Reportable Urine Culture Comments Cath-cult indicated Urine Opiates Screen (Neg) Ur Barbiturates Screen (Neg) Ur Amphetamines Screen (Neg) U Benzodiazepines Scrn (Neg) Urine Cocaine Screen (Neg) U Cannabinoids Screen (Neg) Imaging Data Radiologist's impression: Chest X-Ray 04/24/18 18:51 CONCLUSION: Mild basilar atelectasis or scarring. No effusion or pneumothorax. Linear scarring right upper lobe. Hip X-Ray 04/24/18 20:09 CONCLUSION: Osteoarthritis without fracture. Discharge Plan Discharge Disposition Patient Disposition: ED Admit(ED Internal Use Only) Discharge Condition Condition: Stable Discharge Order Discharge Orders: ED Use Only Admit Order (Routine); Ordered 04/24/18 Ordered By: Mirella Batista Discharge Details Diagnosis: UTI (urinary tract infection), Weakness generalized Physicians Team ED Provider: Esther De La Cruz ED Midlevel Provider: Mirella Batista Primary Care Provider: UNKNOWN, Attending Provider: Tor Azevedo Status ED Status: Left Department Discharge Information Discharge Date/Time: 04/24/18 22:37
--- NOTE | 2018-04-24 20:00 | XR ---
EXAM DATE: 04/24/2018 7:48 PM EST AGE/SEX: 89 years / Female INDICATIONS: Short of breath. CLINICAL DATA: This is the patient's initial encounter. Patient reports that signs and symptoms have been present for 1 day and indicates a pain score of Nonresponsive. MEDICAL/SURGICAL HISTORY: Non-responsive. Non-responsive. COMPARISON: No prior exams available for comparison. FINDINGS: Heart size mildly enlarged. Minimal basilar atelectasis. Multiple surgical clips right axillary regio n. No pneumothorax. CONCLUSION: Mild basilar atelectasis or scarring. No effusion or pneumothorax. Linear scarring right upper lobe. Electronically signed by: Nimesh Miles MD 04/24/2018 7:58 PM EST
[2018-04-24 20:27] LABS: Baso # (Auto) 0.1 th/mm3 (0.0-0.2); Eos # (Auto) 0.1 th/mm3 (0.0-0.4); Eos % (Auto) 1.5 % (0.0-4.0); Hematocrit 41.9 % (35.0-46.0); Hemoglobin 14.3 gm/dL (11.6-15.3); Lymph # (Auto) 1.6 th/mm3 (1.0-4.8); Lymph % (Auto) 28.1 % (9.0-44.0); Mean Corpuscular HGB Conc 34.2 % (32.0-36.0); Mean Corpuscular Hemoglobin 32.1 pg (27.0-34.0); Mean Corpuscular Volume 93.7 fL (80.0-100.0); Mean Platelet Volume 8.4 fL (7.0-11.0); Mono # (Auto) 0.3 th/mm3 (0.0-0.9); Mono % (Auto) 5.2 % (0.0-8.0); Neut # (Auto) 3.7 th/mm3 (1.8-7.7); Neut % (Auto) 64.2 % (16.0-70.0); Platelet Count 279 th/mm3 (150-450); Red Blood Count 4.47 mil/mm3 (4.00-5.30); Red Cell Distribution Width 14.4 % (11.6-17.2); White Blood Count 5.7 th/mm3 (4.0-11.0)
[2018-04-24 20:29] LABS: Bacteria,Urine Many /hpf; Bilirubin,Urine Negative (Negative); Glucose,Urine (UA) Negative (Negative); Leukocyte Esterase,Urine Moderate (Negative); Mucus,Urine Few /lpf (Occasional); Nitrite,Urine Positive (Negative); Specific Gravity,Urine 1.017 (1.002-1.035); Squamous Epithelial Cell,Urine 9 /hpf (0-5)
[2018-04-24 20:32] LABS: Alanine Aminotransferase 20 U/L (10-53)
[2018-04-24 20:33] LABS: Clarity,Urine Hazy (Clear); Color,Urine Yellow (Yellw/Straw)
[2018-04-24 20:42] LABS: Alkaline Phosphatase 93 U/L (45-117); Total Protein 8.1 g/dL (6.4-8.2)
--- NOTE | 2018-04-24 20:45 | XR ---
EXAM DATE: 04/24/2018 8:40 PM EST AGE/SEX: 89 years / Female INDICATIONS: Left hip pain. CLINICAL DATA: This is the patient's initial encounter. Patient reports that signs and symptoms have been present for 1 day and indicates a pain score of Nonresponsive. MEDICAL/SURGICAL HISTORY: Non-responsive. Non-responsive. COMPARISON: No prior exams available for comparison. FINDINGS: AP pelvis and 2 additional views of the left hip demonstrates mild degenerative changes. Femoral neck intact. No fracture seen. Degenerative changes lower lumbar spine and right hip as well. Osseous de nsity is normal. Soft tissues are unremarkable. No radiopaque foreign bodies seen. CONCLUSION: Osteoarthritis without fracture. Electronically signed by: Lasha Reid MD 04/24/2018 8:43 PM EST
[2018-04-24 20:47] LABS: Albumin 3.7 g/dL (3.4-5.0); Anion Gap 8 meq/L (5-15); Aspartate Aminotransferase 24 U/L (15-37); Blood Urea Nitrogen 10 mg/dL (7-18); Calcium 8.9 mg/dL (8.5-10.1); Carbon Dioxide 26.5 meq/L (21.0-32.0); Chloride 106 meq/L (98-107); Glomerular Filtration Rate 50 mL/min (>89); Glucose,Random 104 mg/dL (74-106); Magnesium 2.2 mg/dL (1.5-2.5); Potassium 4.1 meq/L (3.5-5.1); Sodium 140 meq/L (136-145)
[2018-04-24 21:14] LABS: Amphetamine Screen,Urine Neg (Neg); Barbiturate Screen,Urine Neg (Neg); Cannabinoid Screen,Urine Pos (Neg); Cocaine Screen,Urine Neg (Neg)
[2018-04-24 21:19] LABS: Opiate Screen,Urine Neg (Neg)
[2018-04-24] MEDS ORDERED: Sod Chloride 0.9% Inj 1,000 ML IV.SIG SCH (21:30)
[2018-04-24] MEDS ORDERED: Acetaminophen 325 MG Tablet PO PRN (21:57)
[2018-04-24] MEDS ORDERED: Bisacodyl 10 MG Supp RECTAL PRN (21:57)
[2018-04-24] MEDS: Sod Chloride 0.9% Inj 1,000 ML IV.CONT SCH (23:00)
[2018-04-25] MEDS: Sod Chloride 0.9% Inj 1,000 ML IV.CONT SCH ×2 (03:42→22:18)
[2018-04-25] MEDS: Levothyroxine 50 MCG Tablet PO SCH (05:22)
--- NOTE | 2018-04-25 08:32 | ECG ---
Date Performed: 04/24/2018 Time Performed: 18:45:49 PTAGE: 89 years EKG: Sinus rhythm NONSPECIFIC ST & T-WAVE ABNORMALITY BORDERLINE ECG INTERPRETATION BASED ON A DEFAULT AGE OF 41 YEARS NO PREVIOUS TRACING DOCTOR: David Goodman Interpretating Date/Time 04/25/2018 08:28:39
[2018-04-25 09:12] LABS: Baso # (Auto) 0.1 th/mm3 (0.0-0.2); Baso % (Auto) 1.3 % (0.0-2.0); Eos # (Auto) 0.1 th/mm3 (0.0-0.4); Eos % (Auto) 1.5 % (0.0-4.0); Hematocrit 38.2 % (35.0-46.0); Hemoglobin 13.2 gm/dL (11.6-15.3); Lymph # (Auto) 1.7 th/mm3 (1.0-4.8); Lymph % (Auto) 29.2 % (9.0-44.0); Mean Corpuscular HGB Conc 34.6 % (32.0-36.0); Mean Corpuscular Hemoglobin 33.1 pg (27.0-34.0); Mean Corpuscular Volume 95.6 fL (80.0-100.0); Mean Platelet Volume 7.9 fL (7.0-11.0); Mono # (Auto) 0.5 th/mm3 (0.0-0.9); Mono % (Auto) 8.5 % (0.0-8.0); Neut # (Auto) 3.5 th/mm3 (1.8-7.7); Neut % (Auto) 59.5 % (16.0-70.0); Platelet Count 249 th/mm3 (150-450); Red Blood Count 3.99 mil/mm3 (4.00-5.30); Red Cell Distribution Width 14.8 % (11.6-17.2); White Blood Count 5.8 th/mm3 (4.0-11.0)
[2018-04-25 09:24] LABS: Alanine Aminotransferase 16 U/L (10-53); Albumin 3.2 g/dL (3.4-5.0); Anion Gap 7 meq/L (5-15); Aspartate Aminotransferase 19 U/L (15-37); Blood Urea Nitrogen 9 mg/dL (7-18); Calcium 8.4 mg/dL (8.5-10.1); Carbon Dioxide 26.1 meq/L (21.0-32.0); Chloride 109 meq/L (98-107); Glomerular Filtration Rate 61 mL/min (>89); Glucose,Random 83 mg/dL (74-106); Potassium 3.5 meq/L (3.5-5.1); Sodium 142 meq/L (136-145)
[2018-04-25 09:26] LABS: Alkaline Phosphatase 82 U/L (45-117)
--- NOTE | 2018-04-25 11:13 | P.HPIM ---
History of Present Illness Primary Care Physician: Patient is a pleasant female who presents to the ED for AMS. Patient was found altered at home by her who reports patient has been "off" the last few days. As per , he reports that he believes her urine had a maloderous stench and that she has had urinary infections in the past. No head trauma endorsed. Patient does have a history of dementia but her behavior has been out of proportion to her baseline. No slurred speech, facial drooping or worsening weakness. No reported new backpain or emesis. In ED patient found with + U/A and started on emperic abx. Ucx obtained in ED. Toxicology also positive for cabbinoids. Labwork without signs of hyponatremia. Patient afebrile at presentation. Patient given ceftriaxone and continued on abx pending cultures. Diagnosis (1) Hypothyroidism: (2) Altered mental status: Inpatient Certification Inpatient Certification: I certify that the inpatient services were ordered in accordance with Medicare regulations governing the order. This includes certification that hospital inpatient services are reasonable and necessary and in the case of services not specified as inpatient-only under 42 CFR 419.22(n), that they are appropriately provided as inpatient services in accordance to with the 2-midnight benchmark under 43 CFR 412.3(e) Estimated Total Length of Stay (Days): 2 Plans for Post Hospital Care: Not yet determined Review of Systems Review of Systems: all other systems reviewed are negative [facility] Medical History Medical History Dementia (Acute) UTI (urinary tract infection) (Acute) Hypothyroid (Acute) Insomnia (Acute) Social History Social History Substance History: Unable to Obtain Smoking Status: Unknown if ever smoked How Often Do You Have a Drink Containing Alcohol: Unable to Obtain Recent Travel in [place] within the Last 8 Weeks: No Recent Out of Country Travel within the Last 8 Weeks: No Immunization History Tetanus Immunization: Unable to Assess Medications and Allergies Allergies Allergy/AdvReac Type Severity Reaction Status Date / Time No Known Allergies Allergy Verified 04/24/18 18:51 Home Medications Medication Instructions Recorded Confirmed Type celecoxib 200 mg PO DAILY 04/24/18 04/24/18 History donepezil 10 mg PO DAILY 04/24/18 04/24/18 History duloxetine 20 mg PO BID 04/24/18 04/24/18 History levothyroxine 50 mcg PO DAILY 04/24/18 04/24/18 History trazodone 50 mg PO DAILY 04/24/18 04/24/18 History Active Medications: Active Medications Acetaminophen (Tylenol) 650 mg PO Q4H PRN PRN Reason: Temp > 100.4 Al Hydroxide/Mg Hydroxide (Milk Of Magnesia Liq) 30 ml PO Q12H PRN PRN Reason: Mild Constipation Bisacodyl (Dulcolax Supp) 10 mg RECTAL DAILY PRN PRN Reason: SEVERE CONSITIPATION Donepezil HCl (Aricept) 10 mg PO DAILY [facility] Last Admin: 04/25/18 08:39 Dose: 10 mg Duloxetine HCl (Cymbalta) 20 mg PO BID [facility] Last Admin: 04/25/18 08:38 Dose: 20 mg Ceftriaxone Sodium 1,000 mg/ (Sodium Chloride) 100 mls @ 200 mls/hr IV.SIG Q24H [facility] Sodium Chloride (Ns Inj) 1,000 mls @ 40 mls/hr IV.CONT .Q24H [facility] Last Admin: 04/25/18 03:42 Dose: Not Given Lactulose (Lactulose Liq) 30 ml PO DAILY PRN PRN Reason: SEVERE CONSITIPATION Levothyroxine Sodium (Synthroid) 50 mcg PO DAILY@0600 [facility] Last Admin: 04/25/18 05:22 Dose: 50 mcg Ondansetron HCl (Zofran Inj) 4 mg IV.PUSH Q6H PRN PRN Reason: NAUSEA OR VOMITING Sennosides (Senokot) 17.2 mg PO Q12H PRN PRN Reason: Moderate Constipation Sodium Chloride (Ns Flush) 2 ml IV.FLUSH PRN PRN PRN Reason: FLUSH AFTER USING IV ACCESS Sodium Chloride (Ns Flush) 2 ml IV.FLUSH BID [facility] Last Admin: 04/25/18 08:39 Dose: 2 ml Sodium Chloride (Ns Flush) 2 ml IV.FLUSH PRN PRN PRN Reason: FLUSH AFTER USING IV ACCESS Physical Exam Vital signs: Last Vital Signs Temp 98.1 F 04/25/18 08:00 Pulse 82 04/25/18 08:00 Resp 16 04/25/18 08:00 BP 132/59 L 04/25/18 08:00 Pulse Ox 98 04/25/18 08:00 Intake & Output 04/23/18 04/24/18 04/25/18 04/26/18 06:59 06:59 06:59 06:59 Intake Total 1100 / 1100 Balance 1100 / 1100 Weight 81.647 kg general: NAD, altered HEENT: EOMI, PERRLA CVS: regular rate and rhythm. no murmur appreciated. S1/S2 Resp: CTA bilaterally without wheeze, rale, or rhonchi GI: soft, non tender, non distended. Exy: no edema or calf tenderness. Results Labs CBC & Chem 7: 04/25/18 08:52 04/25/18 08:52 Imaging Impressions Chest X-Ray 04/24/18 18:51 CONCLUSION: Mild basilar atelectasis or scarring. No effusion or pneumothorax. Linear scarring right upper lobe. Hip X-Ray 04/24/18 20:09 CONCLUSION: Osteoarthritis without fracture. Caprini VTE Risk Assessment Caprini VTE Risk Assessment: Moderate/High Risk (score >= 2) Caprini Risk Assessment Model: Point Value = 1 Point Value = 2 Point Value = 3 Point Value = 5 Age 41-60 Minor surgery BMI > 25 kg/m2 Swollen legs Varicose veins or History of unexplained or recurrent spontaneous Oral contraceptives or hormone replacement Sepsis (< 1 month) Serious lung disease, including pneumonia (< 1 month) Abnormal pulmonary function Acute myocardial infarction Congestive heart failure (< 1 month) History of inflammatory bowel disease Medical patient at bed rest Age 61-74 Arthroscopic surgery Major open surgery (> 45 min) Laparoscopic surgery (> 45 min) Malignancy Confined to bed (> 72 hours) Immobilizing plaster cast Central venous access Age >= 75 History of VTE Family history of VTE Factor V Leiden Prothrombin [id number] Lupus anticoagulant Anticardiolipin antibodies Elevated serum homocysteine Heparin-induced thrombocytopenia Other congenital or acquired thrombophilia Stroke (< 1 month) Elective arthroplasty Hip, pelvis, or leg fracture Acute spinal cord injury (< 1 month) Prophylaxis Regimen: Total Risk Factor Score Risk Level Prophylaxis Regimen 0-1 Low Early ambulation 2 Moderate Order ONE of the following: *Sequential Compression Device (SCD) *Heparin 5000 units SQ BID 3-4 Higher Order ONE of the following medications: *Heparin 5000 units SQ TID *Enoxaparin/Lovenox 40 mg SQ daily (WT < 150 kg, CrCl > 30 mL/min) *Enoxaparin/Lovenox 30 mg SQ daily (WT < 150 kg, CrCl > 10-29 mL/min) *Enoxaparin/Lovenox 30 mg SQ BID (WT < 150 kg, CrCl > 30 mL/min) AND/OR *Sequential Compression Device (SCD) 5 or more Highest Order ONE of the following medications: *Heparin 5000 units SQ TID (Preferred with Epidurals) *Enoxaparin/Lovenox 40 mg SQ daily (WT < 150 kg, CrCl > 30 mL/min) *Enoxaparin/Lovenox 30 mg SQ daily (WT < 150 kg, CrCl > 10-29 mL/min) *Enoxaparin/Lovenox 30 mg SQ BID (WT < 150 kg, CrCl > 30 mL/min) AND *Sequential Compression Device (SCD) Assessment and Plan (1) Hypothyroidism: Code(s): E03.9 - Hypothyroidism, unspecified Status: Acute (2) Altered mental status: Code(s): R41.82 - Altered mental status, unspecified Status: Acute Plan Infectious disease: UTI - suspect that the patients AMS is multifactorial with positive drug toxicology and UTI coming together to cause symptoms. - Urinary cultures - PENDING - continue ceftriaxone 2g q24hrs Endocrinology: Hypothyrodism - continue levothyroxine 50mcg qD Neurology: Dementia - continue donepzil code: fc dvt ppx dispo: observation status
[2018-04-25 16:43] VITALS: O2SAT 96
[2018-04-26] MEDS: Levothyroxine 50 MCG Tablet PO SCH (07:00)
[2018-04-26 09:01] LABS: Hematocrit 38.4 % (35.0-46.0); Mean Corpuscular HGB Conc 33.9 % (32.0-36.0); Mean Corpuscular Hemoglobin 32.8 pg (27.0-34.0); Mean Corpuscular Volume 96.7 fL (80.0-100.0); Platelet Count 260 th/mm3 (150-450); Red Blood Count 3.97 mil/mm3 (4.00-5.30); Red Cell Distribution Width 14.4 % (11.6-17.2); White Blood Count 5.4 th/mm3 (4.0-11.0)
[2018-04-26 09:35] LABS: Calcium 8.5 mg/dL (8.5-10.1); Carbon Dioxide 23.2 meq/L (21.0-32.0); Magnesium 2.2 mg/dL (1.5-2.5); Potassium 3.6 meq/L (3.5-5.1)
[2018-04-26 13:08] VITALS: BP 138/98; PULSE 84; RESP 18; TEMP 98.8
--- NOTE | 2018-04-26 17:31 | P.DS ---
DS: Providers Date of admission: 04/24/18 21:57 Primary care physician: UNKNOWN Patient is a 73-year-old female with past medical history of hypothyroidism and dementia presenting to the emergency department for altered mental status. Urine culture significant for evidence of UTI for which patient was treated with IV ceftriaxone initially and transitioned to Augmentin p.o. to complete therapy. While hospitalized patient mental status improved significantly and is clinically stable for discharge home to complete outpatient therapy. DS: Diagnosis Discharge Diagnosis (1) Hypothyroidism: Status: Acute (2) Altered mental status: Status: Acute DS: Summary Patient is a 73-year-old female with past medical history of hypothyroidism and dementia presenting to the emergency department for altered mental status. Urine culture significant for evidence of UTI for which patient was treated with IV ceftriaxone initially and transitioned to Augmentin p.o. to complete therapy. While hospitalized patient mental status improved significantly and is clinically stable for discharge home to complete outpatient therapy. Time Spent with Patient Total time spent providing and/or coordinating discharge services: Exam Narrative Exam Narrative: Urology: No CVA tenderness, no suprapubic tenderness noted. Neurology: Patient is aware of name, location. No focal deficits noted on physical examination. No facial droop, no slurred speech, power is intact bilateral upper extremity's. Sensation intact upper and lower extremities bilaterally. Results Labs on day of discharge: Labs from last 24 hours 04/26/18 04/26/18 08:50 08:50 WBC 5.4 RBC 3.97 L Hgb 13.0 Hct 38.4 MCV 96.7 MCH 32.8 MCHC 33.9 RDW 14.4 Plt Count 260 MPV 8.0 Sodium 144 Potassium 3.6 Chloride 110 H Carbon Dioxide 23.2 Anion Gap 11 BUN 9 Creatinine 0.76 Estimated GFR 66 L Random Glucose 86 Calcium 8.5 Magnesium 2.2 Preliminary micro results at discharge 04/24/18 19:14 Urine Culture - Preliminary Catheterized Urine Proteus mirabilis Streptococcus species Impressions ITS Impressions Chest X-Ray 04/24/18 18:51 CONCLUSION: Mild basilar atelectasis or scarring. No effusion or pneumothorax. Linear scarring right upper lobe. Hip X-Ray 04/24/18 20:09 CONCLUSION: Osteoarthritis without fracture. Discharge Plan Discharge Disposition Patient Disposition: 01 Discharge Home Discharge Condition Condition: Stable Discharge Order Discharge Orders: Discharge Order (Routine); Ordered 04/26/18 Ordered By: Tor Azevedo Discharge Details Anticipated Discharge Date: 04/26/18 Discharge Comment: complete Antibiotics for suspected urinary infection with augmentin 500mg twice daily for additional 5 days Physicians Team Primary Care Provider: UNKNOWN, Attending Provider: Tor Azevedo Rxs /Orders / Referrals /Forms Prescriptions: New amoxicillin-pot clavulanate [Augmentin] 500-125 mg tablet 1 tab PO BID 5 Days Qty: 10 RF: 0 Continue celecoxib 200 mg Capsule 200 mg PO DAILY RF: 0 trazodone 50 mg Tablet 50 mg PO DAILY RF: 0 donepezil 10 mg Tablet 10 mg PO DAILY RF: 0 levothyroxine 50 mcg Tablet 50 mcg PO DAILY RF: 0 duloxetine 20 mg Capsule,Delayed Release(Dr/Ec) 20 mg PO BID RF: 0 Referrals: UNKNOWN, [Primary Care Provider] - See Instructions Discharge Instructions Patient Printed Instructions: Urinary Tract Infection in Older Adults (GEN) Post Discharge Care Plan Care Plan Goals: Your Health Problems: Goals to Promote Your Health: * To prevent worsening of your condition * To maintain your health at the optimal level Directions to Meet Your Goals: * Take your medications as prescribed * Follow your dietary instruction * Follow activity as directed * Keep your appointments as scheduled * Take your immunizations and boosters as scheduled * If your symptoms worsen call your PCP * If no PCP go to Urgent Care or Emergency Room Smoking is dangerous to your health. Avoid second hand smoke. You may reach the 24-hour crisis hotline for domestic abuse at . Status ED Status: Left Department Discharge Information Discharge Date/Time: 04/26/18 15:58
== END 2018-04-26 15:58 | disposition home or self-care (01) ==
LOC: NEDA 18:39 → NEPC 18:39 → MERGE 21:57 → EDBD 21:57 → NEPFCDU 22:29
PROVIDERS: ADMIT Internal Medicine; ATTEND Internal Medicine
DX: E03.9 Hypothyroidism, unspecified; N39.0 Urinary tract infection, site not specified; B96.4 Proteus (mirabilis) (morganii) as the cause of diseases classified elsewhere; F03.90 Unspecified dementia, unspecified severity, without behavioral disturbance, psychotic disturbance, mood disturbance, and anxiety; G47.00 Insomnia, unspecified; R82.5 Elevated urine levels of drugs, medicaments and biological substances; R41.82 Altered mental status, unspecified